=== PATIENT | female | born 1940 | race Caucasian/White ===

== ENCOUNTER 2016-12-12 02:16 | Emergency (ER) | payer MEDICARE, OTHER ==
[2016-12-12 02:43] LABS: BASOPHILS 0.3 % (0-2); EOSINOPHILS 2.2 % (0-7); HEMATOCRIT 43.2 % (36.0-48.0); HEMOGLOBIN 14.6 g/dL (12-16); IMMATURE GRANULOCYTES 0.3 % (0-5); LYMPHOCYTES 25.2 % (15-50); MCH 31.2 pg (26.0-34.0); MCHC 33.8 g/dL (31.0-37.0); MCV 92.3 fL (80.0-100.0); MONOCYTES 7.3 % (2-11); NEUTROPHILS 64.7 % (40-80); PLATELET COUNT 259 10x3/uL (130-400); RBC 4.68 10x6/uL (4.00-5.40); RDW 13.2 % (11.5-14.5); WBC 11.5 10x3/uL (4.8-10.8)
== END 2016-12-12 03:26 | disposition home or self-care (01) ==
LOC: D.ER 02:16
PROVIDERS: Emergency Medicine
DX: T81.4XXA Infection following a procedure, initial encounter (principal); B99.9 Unspecified infectious disease; E11.9 Type 2 diabetes mellitus without complications

== ENCOUNTER 2017-04-17 19:53 | Inpatient (IN) | payer MEDICARE, OTHER ==
[~2017-04-17] VITALS: Ht 177.8 cm; Wt 123.8 kg
--- NOTE | ~2017-04-17 | OP ---
PATIENT NAME: NOAH MARTINEZ MEDICAL RECORD: [id number] :42 LOCATION:D.M2 D.2110 ADMISSION DATE:04/17/17 SURGEON: ISAIAH GAMBINO MD DATE OF OPERATION: 04/18/2017 DATE OF OPERATION: 04/18/2017 PREOPERATIVE DIAGNOSES: 1. Acute appendicitis with localized peritonitis. 2. Morbid obesity. 3. Hypertension. 4. Diabetes mellitus. 5. Fibromyalgia. 6. Hypothyroidism. POSTOPERATIVE DIAGNOSES: 1. Acute appendicitis with localized peritonitis. 2. Morbid obesity. 3. Hypertension. 4. Diabetes mellitus. 5. Fibromyalgia. 6. Hypothyroidism. PROCEDURE: Laparoscopic appendectomy. SURGEON: Isaiah Gambino MD REPORT OF PROCEDURE: The patient's abdomen was prepped and draped in sterile fashion. A cutdown was made in the midline, a few centimeters above the umbilicus. Electrocautery was used to dissect through subcutaneous tissues and we encountered the fascia. The 0 Vicryls were placed in the fascia bilaterally and the fascia was incised with 15-blade. I then bluntly entered the peritoneal cavity and placed a 12-mm Beckie port. Under direct visualization, a 5 mm trocar was placed in the left lower quadrant and another was placed in the suprapubic region. The appendix was seen adherent to the anterior abdominal wall, was not purulent or gangrenous. It was diffusely swollen and inflamed. The fatty adhesions were taken down from around it. We made a window between the base of the appendix and the mesoappendix and the mesoappendix was transected with the 45 white load Endo-SARI stapler. The appendix was then transected at its base using a 45 blue load Endo-SARI stapler. There was no sign of any bleeding at this time. The appendix was then placed into an EndoCatch bag and pulled out through the midline incision. The midline incision was then closed with interrupted 0 Vicryls times 3. The wounds were then irrigated out with normal saline and infused with 10 mL of 0.25% Marcaine with epinephrine. The skin incisions were all closed with subcutaneous 5-0 Monocryl and dressed appropriately. COMPLICATIONS: None. CONDITION: Stable. ANESTHESIA: General endotracheal and local. BLOOD LOSS: Minimal. OPERATIVE REPORT [id number] NOAH MARTINEZ TRANSINT:[id number] Voice Confirmation ID: [id number] DOCUMENT ID: [id number] ISAIAH GAMBINO MD CC: [id number] DICTATION DATE: 04/18/17 1303 SHEET TURNER: 04/18/17 1330 ADM IN [place] [id number] [place] [id number]
[2017-04-17 20:32] LABS: BASOPHILS 0.2 % (0-2); EOSINOPHILS 1.2 % (0-7); HEMATOCRIT 41.7 % (36.0-48.0); HEMOGLOBIN 13.9 g/dL (12-16); IMMATURE GRANULOCYTES 0.4 % (0-5); LYMPHOCYTES 16.2 % (15-50); MCH 30.8 pg (26.0-34.0); MCHC 33.3 g/dL (31.0-37.0); MCV 92.3 fL (80.0-100.0); MEAN PLATELET VOLUME 9.8 fL (7.4-10.4); MONOCYTES 7.7 % (2-11); NEUTROPHILS 74.3 % (40-80); PLATELET COUNT 224 10x3/uL (130-400); RBC 4.52 10x6/uL (4.00-5.40); RDW 13.3 % (11.5-14.5); WBC 13.8 10x3/uL (4.8-10.8)
[2017-04-17 20:47] LABS: ALBUMIN 3.4 g/dL (3.4-5.0); ANION GAP 14.5 mmol/L (8-16); BILIRUBIN - TOTAL 0.32 mg/dL (0.2-1.3); CALCIUM 8.9 mg/dL (8.5-10.1); CARBON DIOXIDE 26.8 mmol/L (21.0-32.0); POTASSIUM - SERUM 4.3 mmol/L (3.5-5.1); PROTEIN - SERUM 6.9 g/dL (6.4-8.2)
[2017-04-17 21:40] LABS: APPEARANCE CLEAR (CLEAR); BILIRUBIN NEGATIVE (NEGATIVE); COLOR YELLOW (YELLOW); GLUCOSE NEGATIVE (NEGATIVE); KETONE NEGATIVE (NEGATIVE); NITRITE NEGATIVE (NEGATIVE); PROTEIN NEGATIVE (NEGATIVE); SPECIFIC GRAVITY 1.015 (1.005-1.020); UROBILINOGEN NORMAL (NORMAL)
[2017-04-18 01:15] VITALS: BMI 39.2
[2017-04-18] MEDS ORDERED: LANTUS SOL100 UNIT/1 SC (01:42)
[2017-04-18] MEDS ORDERED: NOVOLOG100 U/M1 SC (01:42)
[2017-04-18] MEDS ORDERED: CETIRIZINE HCL5 MG PO (01:44)
[2017-04-18] MEDS ORDERED: COZAAR25 MG PO ×2 (01:45→17:59)
[2017-04-18] MEDS ORDERED: ARMOUR THYROID30 MG PO ×2 (02:22→17:57)
[2017-04-18 05:34] LABS: APTT 24.6 SECONDS (22.8-39.4); INR 1.02 (0.85-1.17)
[2017-04-18 05:39] LABS: BASOPHILS 0.1 % (0-2); EOSINOPHILS 0.8 % (0-7); HEMATOCRIT 44.3 % (36.0-48.0); HEMOGLOBIN 14.8 g/dL (12-16); IMMATURE GRANULOCYTES 0.3 % (0-5); LYMPHOCYTES 11.7 % (15-50); MCH 30.7 pg (26.0-34.0); MCHC 33.4 g/dL (31.0-37.0); MCV 91.9 fL (80.0-100.0); NEUTROPHILS 79.1 % (40-80); PLATELET COUNT 211 10x3/uL (130-400); RBC 4.82 10x6/uL (4.00-5.40); RDW 13.3 % (11.5-14.5); WBC 14.3 10x3/uL (4.8-10.8)
[2017-04-18 05:54] LABS: ANION GAP 15.8 mmol/L (8-16); CARBON DIOXIDE 26.8 mmol/L (21.0-32.0); CREATININE - SERUM 0.9 mg/dL (0.6-1.3); POTASSIUM - SERUM 4.6 mmol/L (3.5-5.1)
[2017-04-18 06:12] VITALS: BP 148/54
[2017-04-18 08:38] VITALS: BP 148/54
[2017-04-18 12:42] VITALS: Ht 177.8 cm; Wt 123.8 kg
[2017-04-18 14:03] VITALS: BP 156/59
[2017-04-18] MEDS ORDERED: LANTUS INSULIN10 ML SC (17:56)
[2017-04-18] MEDS ORDERED: TRADJENTA5 MG PO (17:57)
[2017-04-18] MEDS ORDERED: ZYRTEC10 MG PO (17:58)
[2017-04-18 20:00] VITALS: BP 148/60; BP 177/70
[2017-04-19 04:00] VITALS: BP 144/51
[2017-04-19 08:48] VITALS: BP 135/50
[2017-04-19 11:46] VITALS: BP 139/52
[2017-04-19] MEDS ORDERED: REPREXAIN 10-21 EACH PO (13:41)
== END 2017-04-19 18:26 | disposition home or self-care (01) | DRG 340 ==
LOC: D.ER 19:53 → D.EDHOLD 23:36 → D.M2 23:36
PROVIDERS: Family Medicine; Surgery
PROC: 0DTJ4ZZ Resection of Appendix, Percutaneous Endoscopic Approach (ICD-10-PCS; principal; 2017-04-18 12:00)
DX: K35.3 Acute appendicitis with localized peritonitis (principal); E66.01 Morbid (severe) obesity due to excess calories; Z68.39 Body mass index [BMI] 39.0-39.9, adult; I10 Essential (primary) hypertension; E11.9 Type 2 diabetes mellitus without complications; E03.9 Hypothyroidism, unspecified

== ENCOUNTER 2017-11-03 02:15 | Emergency (ER) | payer MEDICARE, OTHER ==
[~2017-11-03] VITALS: Ht 177.8 cm; Wt 125.9 kg
[~2017-11-03 02:15] MED LIST: ARMOUR THYROID30 MG PO; CETIRIZINE HCL5 MG PO; COZAAR25 MG PO; LANTUS INSULIN10 ML SC; LANTUS SOL100 UNIT/1 SC; NOVOLOG100 U/M1 SC; REPREXAIN 10-21 EACH PO; TRADJENTA5 MG PO; ZYRTEC10 MG PO
[2017-11-03 02:19] VITALS: Ht 177.8 cm; Wt 125.9 kg
[2017-11-03] MEDS ORDERED: HYDROCODON-ACE1 EAC7 PO (02:35)
[2017-11-03] MEDS ORDERED: ULTRAM50 MG PO (03:08)
[2017-11-03 03:40] VITALS: BP 155/89
== END 2017-11-03 03:43 | disposition home or self-care (01) ==
LOC: D.ER 02:15
DX: S80.211A Abrasion, right knee, initial encounter (principal); W18.31XA Fall on same level due to stepping on an object, initial encounter; Y93.89 Activity, other specified; Y92.410 Unspecified street and highway as the place of occurrence of the external cause; S80.01XA Contusion of right knee, initial encounter; S93.402A Sprain of unspecified ligament of left ankle, initial encounter; E11.9 Type 2 diabetes mellitus without complications; E07.9 Disorder of thyroid, unspecified

== ENCOUNTER → 2017-11-06 16:37 | Outpatient (CLI) | payer MEDICARE, OTHER ==
[2017-11-03 02:19] VITALS: BMI 39.8
[~2017-11-06 16:37] MED LIST changes: +HYDROCODON-ACE1 EAC7 PO; +ULTRAM50 MG PO
== END | disposition home or self-care (01) ==
LOC: D.RAD 16:37
DX: S82.843A Displaced bimalleolar fracture of unspecified lower leg, initial encounter for closed fracture (principal); X58.XXXA Exposure to other specified factors, initial encounter

== ENCOUNTER 2017-12-02 00:20 | Emergency (ER) | payer MEDICARE, OTHER ==
[~2017-12-02] VITALS: Ht 177.8 cm; Wt 124.5 kg
[2017-12-02 00:29] VITALS: Ht 177.8 cm; Wt 124.5 kg
[2017-12-02 01:19] LABS: BASOPHILS 0.5 % (0-2); EOSINOPHILS 1.7 % (0-7); HEMOGLOBIN 13.9 g/dL (12-16); IMMATURE GRANULOCYTES 0.5 % (0-5); LYMPHOCYTES 27.8 % (15-50); MCH 30.9 pg (26.0-34.0); MCHC 33.9 g/dL (31.0-37.0); MCV 91.1 fL (80.0-100.0); MEAN PLATELET VOLUME 9.9 fL (7.4-10.4); MONOCYTES 8.4 % (2-11); NEUTROPHILS 61.1 % (40-80); PLATELET COUNT 232 10x3/uL (130-400); RDW 13.3 % (11.5-14.5); WBC 10.6 10x3/uL (4.8-10.8)
[2017-12-02 01:27] LABS: ALBUMIN 3.3 g/dL (3.4-5.0); ANION GAP 13.7 mmol/L (8-16); BILIRUBIN - TOTAL 0.41 mg/dL (0.2-1.3); CALCIUM 9.2 mg/dL (8.5-10.1); CREATININE - SERUM 1.1 mg/dL (0.6-1.3); PROTEIN - SERUM 7.1 g/dL (6.4-8.2)
[2017-12-02 01:29] LABS: CARBON DIOXIDE 27.3 mmol/L (21.0-32.0)
[2017-12-02 02:04] LABS: APPEARANCE CLEAR (CLEAR); COLOR YELLOW (YELLOW); GLUCOSE NEGATIVE (NEGATIVE); KETONE NEGATIVE (NEGATIVE); NITRITE NEGATIVE (NEGATIVE); PROTEIN NEGATIVE (NEGATIVE); UROBILINOGEN NORMAL (NORMAL)
[2017-12-02 02:05] LABS: BILIRUBIN NEGATIVE (NEGATIVE)
[2017-12-02 02:34] VITALS: BP 125/55
== END 2017-12-02 02:35 | disposition home or self-care (01) ==
LOC: D.ER 00:20
PROVIDERS: Family Medicine
DX: M25.552 Pain in left hip (principal); E11.9 Type 2 diabetes mellitus without complications; E07.9 Disorder of thyroid, unspecified

== ENCOUNTER → 2018-01-09 13:41 | Outpatient (CLI) | payer MEDICARE, OTHER ==
[2017-12-02 00:29] VITALS: BMI 39.3
== END | disposition home or self-care (01) ==
LOC: D.US 13:41
DX: R19.00 Intra-abdominal and pelvic swelling, mass and lump, unspecified site (principal)

== ENCOUNTER 2018-03-08 02:22 | Inpatient (IN) | payer MEDICARE, OTHER ==
[~2018-03-08] VITALS: Ht 177.8 cm; Wt 123.4 kg
[2018-03-08] VITALS (8 sets, daily range): BP systolic 114–158; BP diastolic 54–69; BMI 39.1; BMI 39.0
--- NOTE | 2018-03-08 03:00 | NUR ---
REDNESS AND SWELLING NOTED TO RIGHT FOOT. RIGHT MIDDLE TOE IS WHITE.
[2018-03-08 03:09] LABS: BASOPHILS 0.2 % (0-2); EOSINOPHILS 1.3 % (0-7); HEMOGLOBIN 14.2 g/dL (12-16); IMMATURE GRANULOCYTES 0.4 % (0-5); LYMPHOCYTES 24.2 % (15-50); MCH 30.8 pg (26.0-34.0); MCHC 33.8 g/dL (31.0-37.0); MCV 91.1 fL (80.0-100.0); MEAN PLATELET VOLUME 9.9 fL (7.4-10.4); MONOCYTES 8.1 % (2-11); NEUTROPHILS 65.8 % (40-80); RBC 4.61 10x6/uL (4.00-5.40); RDW 13.5 % (11.5-14.5); WBC 12.6 10x3/uL (4.8-10.8)
[2018-03-08 03:11] LABS: ALBUMIN 3.6 g/dL (3.4-5.0); ALKALINE PHOSPHATASE 144 U/L (46-116); ALT (SGPT) 61 U/L (10-68); BILIRUBIN - TOTAL 0.44 mg/dL (0.2-1.3); CALC OSMOLALITY 281 mosm/kg (275-300); CALCIUM 9.3 mg/dL (8.5-10.1); CARBON DIOXIDE 25.5 mmol/L (21.0-32.0); CHLORIDE - SERUM 102 mmol/L (98-107); CREATININE - SERUM 1.1 mg/dL (0.6-1.3); GLUCOSE 139 mg/dL (74-106); POTASSIUM - SERUM 4.2 mmol/L (3.5-5.1); PROTEIN - SERUM 7.8 g/dL (6.4-8.2); SODIUM 138 mmol/L (136-145); UREA NITROGEN 23 mg/dL (7-18); eGFR NON AFRICAN AMERICAN 51 mL/min (90-120)
[2018-03-08 03:13] LABS: PLATELET COUNT 296 10x3/uL (130-400)
[2018-03-08 03:20] LABS: C-REACTIVE PROTEIN 3.9 mg/dL (0.0-0.9); CREATINE KINASE 142 UL (21-215); PRO BNP 159 pg/mL (0-450)
[2018-03-08 03:24] LABS: TROPONIN-I < 0.017 ng/mL (0.000-0.060)
--- NOTE | 2018-03-08 03:39 | NUR ---
IV ABX CONITUNED TO FLOOR AT THIS TIME
--- NOTE | 2018-03-08 07:40 | NUR ---
PT RESTING IN BED EATING BREAKFAST. NO C/O PAIN. NO S/S OF ACUTE DISTRESS NOTED. CELLULITIS TO RIGHT FOOT. IV TO RIGHT FOREARM, SITE PATENT WITHOUT REDNESS OR SWELLING, SL. PT ALERT AND ORIENTED. UP AD JULISSA. ACHS. PT DENIES ANYTHING FURTHER AT THIS TIME. CALL LIGHT IN REACH. WILL CONTINUE TO MONITOR.
--- NOTE | 2018-03-08 12:30 | NUR ---
PT EATING LUNCH AT THIS TIME, DENIES NEEDS. WCTM.
[2018-03-08 15:22] LABS: ERYTHROCYTE SEDIMENTATION RATE 12 mm/hr (0-30)
--- NOTE | 2018-03-08 18:47 | NUR ---
PT RESTING IN BED, EYES OPEN. AT BEDSIDE. NO C/O PAIN. NO S/S OF ACUTE DISTRESS NOTED. PT DENIES ANYTHING FURTHER AT THIS TIME. CALL LIGHT IN REACH. WILL CONTINUE TO MONITOR.
--- NOTE | 2018-03-08 19:46 | NUR ---
RECIEVED SITTING UP ON THE SIDE OF THE BED. ALERT AND ORIENTED X4. IV TO RIGHT FA SL.. UP AD JULISSA TO B/R. DENIES ANY NEEDS AT THIS TIME. WILL CONT. POC.
[2018-03-09] VITALS: BP 121/60
[2018-03-09 03:00] VITALS: BP 157/57
[2018-03-09 07:32] LABS: BASOPHILS 0.3 % (0-2); EOSINOPHILS 1.7 % (0-7); HEMATOCRIT 37.3 % (36.0-48.0); HEMOGLOBIN 12.4 g/dL (12-16); IMMATURE GRANULOCYTES 0.3 % (0-5); LYMPHOCYTES 26.6 % (15-50); MCH 30.3 pg (26.0-34.0); MCHC 33.2 g/dL (31.0-37.0); MCV 91.2 fL (80.0-100.0); MEAN PLATELET VOLUME 9.8 fL (7.4-10.4); MONOCYTES 9.5 % (2-11); NEUTROPHILS 61.6 % (40-80); PLATELET COUNT 259 10x3/uL (130-400); RBC 4.09 10x6/uL (4.00-5.40); RDW 13.5 % (11.5-14.5)
[2018-03-09 07:39] LABS: WBC 7.7 10x3/uL (4.8-10.8)
[2018-03-09 07:52] LABS: ANION GAP 14.1 mmol/L (8-16); CALCIUM 8.5 mg/dL (8.5-10.1); CARBON DIOXIDE 25.9 mmol/L (21.0-32.0)
[2018-03-09 09:37] VITALS: BP 178/73
--- NOTE | 2018-03-09 12:20 | NUR ---
RN ROUNDS. CO SIGN WITH ASSINGED NURSE. PATIENT OOB TO RESTROOM. RESP EVEN AND UNLABORED. PATIENTS AT BEDSIDE. NO DISTRESS.
[2018-03-09 13:00] VITALS: BP 142/66
[2018-03-09 15:12] VITALS: BP 151/52
[2018-03-09 19:00] VITALS: BP 156/78
--- NOTE | 2018-03-09 22:12 | NUR ---
PATIENT RESTING IN BED WITH NO S/S OF DISTRESS. ADMINISTERED MEDS PER ORDERS. PATIENT DENIES OTHER NEEDS AT THIS TIME. BED IN LOWEST POSITION AND CALL LIGHT WITHIN REACH. ENCOURAGED THE PATIENT TO CALL IF HE HAS NEEDS.
[2018-03-10] VITALS: BP 160/63
[2018-03-10 03:00] VITALS: BP 158/61
[2018-03-10 08:00] VITALS: BP 166/61
--- NOTE | 2018-03-10 08:20 | NUR ---
PT AOX4 RESP EVEN AND NONLABORED IV TO RIGHT FOREARM PATENT AND INTACT AT THIS TIME SRX2 BED AT LOWEST SETTING CALL LIGHT WITHIN REACH WILL CONTINUE TO MONITOR
[2018-03-10 10:11] LABS: BASOPHILS 0.2 % (0-2); EOSINOPHILS 2.1 % (0-7); HEMOGLOBIN 12.7 g/dL (12-16); IMMATURE GRANULOCYTES 0.2 % (0-5); LYMPHOCYTES 24.8 % (15-50); MCH 30.2 pg (26.0-34.0); MCHC 33.4 g/dL (31.0-37.0); MCV 90.3 fL (80.0-100.0); MEAN PLATELET VOLUME 9.8 fL (7.4-10.4); MONOCYTES 7.5 % (2-11); NEUTROPHILS 65.2 % (40-80); PLATELET COUNT 253 10x3/uL (130-400); RBC 4.21 10x6/uL (4.00-5.40); RDW 13.3 % (11.5-14.5); WBC 8.2 10x3/uL (4.8-10.8)
[2018-03-10 10:36] LABS: ANION GAP 11.8 mmol/L (8-16); CALCIUM 9.1 mg/dL (8.5-10.1); CARBON DIOXIDE 26.5 mmol/L (21.0-32.0); POTASSIUM - SERUM 4.3 mmol/L (3.5-5.1)
--- NOTE | 2018-03-10 11:38 | NUR ---
X3 DAYS OF VANCOMYCIN THERAPY COMPLETE PLEASE REORDER IF EXTENDED DURATION IS NEEDED THANK YOU FOR THE CONSULT!
[2018-03-10 12:00] VITALS: BP 108/48
[2018-03-10 16:00] VITALS: BP 138/53
[2018-03-10 19:08] LABS: APPEARANCE CLEAR (CLEAR); BILIRUBIN NEGATIVE (NEGATIVE); COLOR YELLOW (YELLOW); GLUCOSE NEGATIVE (NEGATIVE); KETONE NEGATIVE (NEGATIVE); NITRITE NEGATIVE (NEGATIVE); PROTEIN NEGATIVE (NEGATIVE); UROBILINOGEN NORMAL (NORMAL)
[2018-03-10 20:00] VITALS: BP 144/56
--- NOTE | 2018-03-10 21:49 | NUR ---
SPOKE WITH DR. VIZCAINO IN REGARDS TO COMING BACK AND SPEAKING TO THE PATIENT AND FAMILY AGAIN PER THEIR REQUEST. DR. VIZCAINO STATED IT WILL BE A LITTLE BIT BUT HE WILL COME BACK.
[2018-03-11] VITALS: BP 160/55
--- NOTE | 2018-03-11 01:01 | NUR ---
PATIENT RESTING IN BED WITH NO S/S OF DISTRESS. GUEST AT BEDSIDE. PATIENT UP TO RESTROOM AND IS STABLE ON HER FEET. ADMINISTERED MEDS PER ORDERS. PATIENT DENIES OTHER NEEDS AT THIS TIME. BED IN LOWEST POSITION AND CALL LIGHT WITHIN REACH. ENCOURAGED THE PATIENT TO CALL IF SHE HAS NEEDS. ALSO REMINDED THE PATIENT THAT SHE CANNOT HAVE ANYTHING TO EAT OR DRINK AFTER MIDNIGHT.
[2018-03-11 04:00] VITALS: BP 152/49
[2018-03-11 06:37] LABS: BASOPHILS 0.2 % (0-2); EOSINOPHILS 1.7 % (0-7); HEMOGLOBIN 13.6 g/dL (12-16); IMMATURE GRANULOCYTES 0.5 % (0-5); LYMPHOCYTES 20.9 % (15-50); MCH 30.8 pg (26.0-34.0); MCV 90.5 fL (80.0-100.0); MEAN PLATELET VOLUME 9.9 fL (7.4-10.4); MONOCYTES 9.2 % (2-11); NEUTROPHILS 67.5 % (40-80); PLATELET COUNT 262 10x3/uL (130-400); RBC 4.42 10x6/uL (4.00-5.40); RDW 13.3 % (11.5-14.5); WBC 10.1 10x3/uL (4.8-10.8)
[2018-03-11 07:01] LABS: ANION GAP 12.2 mmol/L (8-16); CALCIUM 9.1 mg/dL (8.5-10.1); CARBON DIOXIDE 28.1 mmol/L (21.0-32.0); POTASSIUM - SERUM 4.3 mmol/L (3.5-5.1)
[2018-03-11 07:55] VITALS: BP 150/60
--- NOTE | 2018-03-11 08:06 | NUR ---
PT LYING IN BED STATED SHE IS CONCERNED IN REGARDS TO A SEPULVEDA BEING PLACED WHILE SHE IS IN PROCEDURE, PT STATED SHE HAD ONE PLACED DURING HER LAST SURGERY THAT CAUSED IRRITATION AND INFECTION, ADVISED PT TO RELAY CONCERNS TO ANESTHESIA WHEN THEY COME BY, PT ALSO STATED THAT SHE HAS A HARD TIME WAKING UP FROM SEDATION, TOLD PT THIS IS IMPORTANT TO TELL THE ANESTHESIA TEAM THIS. ADMINISTERED MORNING MEDS TO PT, NO OTHER NEEDS VOICED CONTINUE WITH PLAN OF CARE
[2018-03-11 11:54] VITALS: BP 123/51
--- NOTE | 2018-03-11 13:29 | EC ---
PATIENT:NOAH MARTINEZ DATE OF SERVICE: 03/08/18 SEX: F MEDICAL RECORD: [id number] DATE OF : 42 LOCATION:D. D.120 AGE OF PATIENT: 77 ADMISSION DATE: 03/08/18 REFERRING PHYSICIAN: INTERPRETING PHYSICIAN: LÁZARO MEADOWS MD ECHOCARDIOGRAM REPORT ECHO CHARGES 4 ECHO COMPLETE Date: 03/11/18 CLINICAL DIAGNOSIS: ASSESS LV FUNCTION ECHOCARDIOGRAPHIC MEASUREMENTS (adult normal given) AC root (d.<3.7cm) 3.5 cm LV Septum d (<1.2 cm> 1.1 cm Valve Excursion 1.5 cm LV Septum (systole) 1.5 cm Left Atria (s.<4.0cm> 3.2 cm LVPW d(<1.2cm) 0.7 cm RV (d.<2.3cm) 2.3 cm LVPW (sytole) 0.9 cm LV diastole(<5.6CM) 4.6 cm MV E-F(>70mm/sec) cm LV systole 3.8 cm LVOT Diameter 1.9 cm MV exc.(>10mm) cm Est.ejection fraction (50-75%) % DOPPLER: LVIT cm/sec A 112 cm/sec E 83.0 cm/sec LA cm/sec RVSP 26 mmHg LVOT 89 cm/sec AOP1/2T m/s Asc. Ao 138 cm/sec RVOT 92 cm/sec RA cm/sec PA 108 cm/sec AV Gradient Peak 7.6 mmHg AV Mean 4.0 mmHg AV Area 2.0 cm MV Gradient Peak 5.6 mmHg MV Mean 3.2 mmHg MV Area cm COMMENTS: Customer Relations Representative: Javire EPSTEIN Laundry Aide: 2 Dr. Jay TAPE# PACS Pericardial Effusion N DATE OF SERVICE: 03/10/2018 PROCEDURE: Echocardiogram. FINDINGS: 1. Left ventricular chamber size is within normal limits. Left ventricular systolic function is normal. Overall ejection fraction estimated at 60%. 2. Left atrium, right atrium, and right ventricle chamber sizes are within normal limits. 3. Valvular structures have normal structure and motion. ECHOCARDIOGRAM REPORT [id number] NOAH MARTINEZ 4. Doppler interrogation reveals mild tricuspid regurgitation, no other valvular insufficiency or stenosis. Pulmonary systolic pressure estimated at 26 mmHg. 5. No evidence of pericardial effusion or left ventricular thrombus. TRANSINT:[id number] Voice Confirmation ID: [id number] DOCUMENT ID: [id number] LÁZARO MEADOWS MD at 1329 CC: [id number] DICTATION DATE: 03/11/18 1220 PROCESS SAFETY SPECIALIST: 03/11/18 1252 ADM IN [facility] [address] [place] [address]
--- NOTE | 2018-03-11 14:03 | NUR ---
RN ROUNDING DONE WITH PATIENT RESTING WITH EYES CLOSED. RIGHT WRIST PIV SEEN WITH SALINE LOCK. PATIENT IS ON ROOM AIR. RESP ARE EVEN AND NON LABORED. NPO STATUS FOR SURFERY TODAY.
[2018-03-11 15:40] VITALS: BP 142/57
--- NOTE | 2018-03-11 17:51 | NUR ---
PT NEEDED TO HAVE EKG COMPLETED FOR SURGERY, PER ORDERS EKG ORDERED AND ACTIVE, CALLED RESPIRATORY SPOKE WITH BERTIN AND ADVISED SHE WAS GETTING O2 TANKS AND TO CALL [facility] OR [facility], CALLED [facility] AND ADVISED OF NEED. STATED HE WILL LOOK INTO IT
--- NOTE | 2018-03-11 18:44 | NUR ---
PT AND SPOUSE INQUIRED ON SURGERY HOLD UP, CALLED SURGERY AND NO ANSWER, DAJA CADE CALLED DIRECTOR BUSINESS TRAVEL AND WAS ADVISED DR CALDERON IS STILL IN SURGERY, SPOKE TO PT AND SPOUSE AND ADVISED OF SURGERY STILL GOING ON PT IS HUNGRY. CONTINUE WITH PLAN OF CARE
--- NOTE | 2018-03-11 19:09 | NUR ---
SPOKE WITH CHEVY, RT TO LET HER KNOW WE NEED AN EKG SOON POSSIBLE ON PATIENT. SHE STATED THAT SHE WILL LET THE RT KNOW.
[2018-03-11 19:44] VITALS: BP 135/51
--- NOTE | 2018-03-11 19:56 | NUR ---
PATIENT BEING TAKEN FOR SURGERY
--- NOTE | 2018-03-11 21:50 | NUR ---
REC'D PATIENT BACK FROM RECOVERY. NO S/S OF DISTRESS. WILL CONTINUE TO MONITOR.
--- NOTE | 2018-03-11 22:23 | NUR ---
PATIENT C/O PAIN AND REQUESTING THE DOCTOR BE CALLED FOR ANOTHER PAIN MEDICATAION. I ATTEMPTED TO CALL DR. MCCORD, SECURITY SHIFT SUPERVISOR FOR DR. CALDERON, AND IT WENT TO . WILL TRY AGAIN
--- NOTE | 2018-03-11 22:39 | NUR ---
SPOKE WITH DR. MCCORD IN REGARDS TO PATIENT'S PAIN. DR. MCCORD STATED THE PATIENT CAN HAVE NORCO/PERCOCET-10 SHE CAN HAVE MORPHINE Q4HP. THE PATIENT REFUSED THE NORCO AND PERCOCET STATING THAT THE ACETAMINOPHEN UPSETS HER STOMACH. ORDERED MORPHINE.
[2018-03-12] VITALS (7 sets, daily range): BP systolic 121–175; BP diastolic 41–68
[2018-03-12 05:43] LABS: BASOPHILS 0.3 % (0-2); EOSINOPHILS 2.1 % (0-7); HEMATOCRIT 39.3 % (36.0-48.0); HEMOGLOBIN 13.2 g/dL (12-16); IMMATURE GRANULOCYTES 0.4 % (0-5); LYMPHOCYTES 28.2 % (15-50); MCH 30.6 pg (26.0-34.0); MCHC 33.6 g/dL (31.0-37.0); MEAN PLATELET VOLUME 9.8 fL (7.4-10.4); MONOCYTES 9.4 % (2-11); NEUTROPHILS 59.6 % (40-80); PLATELET COUNT 254 10x3/uL (130-400); RBC 4.32 10x6/uL (4.00-5.40); RDW 13.5 % (11.5-14.5)
[2018-03-12 06:04] LABS: ANION GAP 13.3 mmol/L (8-16); CALCIUM 8.7 mg/dL (8.5-10.1); CARBON DIOXIDE 27.5 mmol/L (21.0-32.0); POTASSIUM - SERUM 3.8 mmol/L (3.5-5.1)
--- NOTE | 2018-03-12 07:49 | OP ---
PATIENT NAME: NOAH MARTINEZ MEDICAL RECORD: [id number] :42 LOCATION:D.M3 D.1206 ADMISSION DATE:03/08/18 SURGEON: TUCKER CALDERON DO DATE OF OPERATION: 03/11/2018 PROCEDURE PERFORMED: Right third toe amputation. 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 INDICATIONS: Ms. Martinez is a 77-year-old female who is diabetic and had a cellulitis of her right foot and a large bulla on her right third toe. It was draining. She was admitted to the hospital and started on IV antibiotics. An MRI was done, which demonstrated cellulitis in the foot and also osteomyelitis of the right third toe in the distal phalanx. I informed her that we could get a bone biopsy and direct treatment, but she did get a chance to the osteo to come back in that toe, so we could amputate the toe and it should be done with it and she would be able to walk on her foot. She would just be missing the third toe. This would eliminate the osteo in her foot though at least in that toe. It was ultimately decided she wanted the amputation rather than a bone biopsy and treatment and to do nothing and in line with her desires that is what we did. She is aware of the risks and benefits including infection, bleeding, damage to vessels, need for further surgery, she signed the consent. SURGEON: Tucker Calderon DO ASSISTED BY: Fransico Yin. DESCRIPTION OF THE PROCEDURE: The patient was taken to the operative suite, laid in supine position. She was on IV vancomycin during her stay here, so no preoperative antibiotics were given. The tourniquet was placed under the drapes, she was prepped and draped in sterile fashion. After timeout was performed, the incision was drawn out and around the third toe at the base of the MTP joint. This was incised around the toe with a 15 blade scalpel and then the toe was removed. The extensor and flexor tendons were cut as well and then the third metatarsal head cartilage was removed and the tourniquet was let down. The site was thoroughly irrigated. Any bleeders were coagulated with the Bovie at the time and the skin was closed with 2-0 Prolene in a horizontal mattress type stitch and a few simple stitches. The site was then anesthetized with 10 mL of lidocaine 1% and then a dressing was applied of Adaptic, 4 x 4s, Kerlix and Jose Miguel wrap. The patient was placed into a postop shoe and the second postop shoe was placed on her left foot and as she requested prior to the surgery, so she would not walk off balance. The tourniquet was let down to 3 minutes and had been inflated prior to the incision. Blood loss approximately 10 mL. COMPLICATIONS: None. OPERATIVE REPORT [id number] NOAH MARTINEZ TRANSINT:[id number] Voice Confirmation ID: [id number] DOCUMENT ID: [id number] TUCKER CALDERON DO at 0749 CC: [id number] DICTATION DATE: 03/11/182122 HEALTH UNDERWRITER: 03/11/182232 ADM IN [facility] [address] [place] [address]
--- NOTE | 2018-03-12 08:39 | NUR ---
AM MEDS GIVEN AT THIS TIME. ALSO GAVE 4MG OF MORPHINE FOR PAIN LEVEL OF 8/10. PT DENIES ANY NEEDS AT THIS TIME. CALL LIGHT IN REACH, FAMILY AT BEDSIDE, NAD NOTED, WILL CONTINUE TO MONITOR.
--- NOTE | 2018-03-12 12:14 | MORECARE ---
CASE MANAGEMENT DISCHARGE SUMMARY PATIENT: NOAH MARTINEZ UNIT: [id number] ADM DATE: 03/08/18 AGE: 77 : 41 SEX: F ROOM/BED: D.1206 AUTHOR: LEONARD BRYAN PHYSICIAN: REFERRING PHYSICIAN: KRYSTLE VELÁZQUEZ MD DATE OF SERVICE: 03/12/18 Discharge Plan Patient Name: NOAH MARTINEZ Facility: [facility]:[place] : 1940 Planned Disposition: Anticipated Discharge Date: Discharge Date: Expected LOS: Initial Reviewer: [email or web address] Initial Review Date: 03/12/2018 Generated: 03/12/18 1:14 pm Comments DCP- Discharge Planning Updated by [id number]: Ira Lassiter on 03/12/18 11:[address] Patient Name: NOAH MARTINEZ Admission Status: ER Accout number: [id number] Admission Date: 03-08-2018 : 1940 Admission Diagnosis:OTHER ACUTE OSTEOMYELITIS, RIGHT ANKLE AND FOOT Attending: KRYSTLE VELÁZQUEZ Current LOS: 4 Anticipated DC Date: Planned Disposition: Primary Insurance: MEDICARE A & B Discharge Planning Comments: CM MET WITH PATIENT ABOUT DC PLANNING/NEEDS. SHE STATES SHE PLANS TO DC TO HOME. STATES WANTS A WHEEL CHAIR IF SHE QUALIFIES FOR ONE. USES WALKER AT HOME. [facility] FOR HH LEFT WITH PATIENT PER HER REQUEST, SHE IS TRYING TO FIND OUT WHICH HH IS CLOSE TO HER. IM SIGNED. LIVES AT HOME WITH . CM WILL FOLLOW AND ASSIST NEEDED WITH DC PLANNING/NEEDS. Limited Radiology Technician: Ira Lassiter Coverage Notice Reviewer: [id number] - Ira Lassiter Notice Issued Date-Time: 03/12/2018 12:07 Notice Type: IM Discharge Notice Notice Delivered To: Patient Relationship to Patient: Self Side Stapler Name: Delivery Method: HAND - Hand Delivered Kaur Days: Prior Verbal Notification: Recipient Understood Notice: Yes Recipient Signature: Yes Med Rec Note Co-signed by Attending: Coverage Notice Comment: Patient Name: NOAH MARTINEZ Page [phone] at 1214 All edits/amendments must be made on the electronic document DICTATION DATE: 03/12/18 1213 MAT TESTER: MARVIN 03/12/18 1213 RPT#: [id number] DC DATE: STATUS: ADM IN [facility] [address] [place] [address] END OF REPORT
--- NOTE | 2018-03-12 12:21 | MORECARE ---
CASE MANAGEMENT DISCHARGE SUMMARY PATIENT: NOAH MARTINEZ UNIT: [id number] ADM DATE: 03/08/18 AGE: 77 : 41 SEX: F ROOM/BED: D.1206 AUTHOR: LEONARD BRYAN PHYSICIAN: REFERRING PHYSICIAN: KRYSTLE VELÁZQUEZ MD DATE OF SERVICE: 03/12/18 Discharge Plan Patient Name: NOAH MARTINEZ Facility: [facility]:[place] : 1940 Planned Disposition: Anticipated Discharge Date: Discharge Date: Expected LOS: Initial Reviewer: [email or web address] Initial Review Date: 03/12/2018 Generated: 03/12/18 1:21 pm Comments DCP- Discharge Planning Updated by [email or web address]: Ira Lassiter on 03/12/18 11:[address] Patient Name: NOAH MARTINEZ Admission Status: ER Accout number: [id number] Admission Date: 03-08-2018 : 1940 Admission Diagnosis:OTHER ACUTE OSTEOMYELITIS, RIGHT ANKLE AND FOOT Attending: KRYSTLE VELÁZQUEZ Current LOS: 4 Anticipated DC Date: Planned Disposition: Primary Insurance: MEDICARE A & B Discharge Planning Comments: CM MET WITH PATIENT ABOUT DC PLANNING/NEEDS. SHE STATES SHE PLANS TO DC TO HOME. STATES WANTS A WHEEL CHAIR IF SHE QUALIFIES FOR ONE. USES WALKER AT HOME. [facility] FOR HH LEFT WITH PATIENT PER HER REQUEST, SHE IS TRYING TO FIND OUT WHICH HH IS CLOSE TO HER. IM SIGNED. LIVES AT HOME WITH . CM WILL FOLLOW AND ASSIST NEEDED WITH DC PLANNING/NEEDS. Insurance Claim Approver: Ira Lassiter DCPIA - Discharge Planning Initial Assessment Updated by [id number]: Ira Lassiter on 03/12/18 12:15 pm * Is the patient Alert and Oriented? Yes * PCP SOILA * Pharmacy [facility] [place] * Preadmission Environment Home with Family * ADLs Independent * Equipment Walker * List name and contact numbers for known caregivers / representatives who currently or will assist patient after discharge: THERESA, * Community resources currently utilized None * Can the patient safely return to the preadmission environment? Yes * Has this patient been hospitalized within the prior 30 days at any hospital? No Coverage Notice Reviewer: [id number] - Ira Lassiter Notice Issued Date-Time: 03/12/2018 12:07 Notice Type: IM Discharge Notice Notice Delivered To: Patient Relationship to Patient: Self Power Sewing Machine Operator Name: Delivery Method: HAND - Hand Delivered Kaur Days: Prior Verbal Notification: Recipient Understood Notice: Yes Recipient Signature: Yes Med Rec Note Co-signed by Attending: Coverage Notice Comment: Last DP export: 03/12/18 11:14 a Patient Name: NOAH MARTINEZ Page [phone] at 1221 All edits/amendments must be made on the electronic document DICTATION DATE: 03/12/18 1220 DIE CUTTER DIAMOND: MARVIN 03/12/18 1220 RPT#: [id number] DC DATE: STATUS: ADM IN [facility] [address] [place] [address] END OF REPORT
--- NOTE | 2018-03-12 15:03 | NUR ---
Rehab Note- Acute Inpatient Rehab prescreen order received. The patient's is not interested in inpatient acute rehab stay at time. Spoke with SCOT Roth. Thank you for this referral! Cathryn Lyon RN Clinical Liaison, [facility] Rehab
--- NOTE | 2018-03-12 15:12 | MORECARE ---
CASE MANAGEMENT DISCHARGE SUMMARY PATIENT: NOAH MARTINEZ UNIT: [id number] ADM DATE: 03/08/18 AGE: 77 : 41 SEX: F ROOM/BED: D.1206 AUTHOR: IRVINDOC PHYSICIAN: REFERRING PHYSICIAN: KRYSTLE VELÁZQUEZ MD DATE OF SERVICE: 03/12/18 Discharge Plan Patient Name: NOAH MARTINEZ Facility: [facility]:[place] : 1940 Planned Disposition: Anticipated Discharge Date: Discharge Date: Expected LOS: Initial Reviewer: [email or web address] Initial Review Date: 03/12/2018 Generated: 03/12/18 4:12 pm Comments DCP- Discharge Planning Updated by [id number]: Ira Lassiter on 03/12/18 2:[address] Patient Name: NOAH MARTINEZ Admission Status: ER Accout number: [id number] Admission Date: 03-08-2018 : 1940 Admission Diagnosis:OTHER ACUTE OSTEOMYELITIS, RIGHT ANKLE AND FOOT Attending: KRYSTLE VELÁZQUEZ Current LOS: 4 Anticipated DC Date: Planned Disposition: Primary Insurance: MEDICARE A & B Discharge Planning Comments: CM MET WITH PATIENT ABOUT DC PLANNING/NEEDS. SHE STATES SHE PLANS TO DC TO HOME. STATES WANTS A WHEEL CHAIR IF SHE QUALIFIES FOR ONE. USES WALKER AT HOME. [facility] FOR HH LEFT WITH PATIENT PER HER REQUEST, SHE IS TRYING TO FIND OUT WHICH HH IS CLOSE TO HER. IM SIGNED. LIVES AT HOME WITH . CM WILL FOLLOW AND ASSIST NEEDED WITH DC PLANNING/NEEDS. Welfare Eligibility Worker: Ira Lassiter Appended by Ira Lassiter on 03/12/2018 15:06 SCREW MACHINE SET UP OPERATOR: CM WAS CONTACTED BY PATIENT'S THERESA, HE STATES THEY ARE NOT INTERESTED IN IN PATIENT REHAB. STATES WANTS TO TALK TO THE DOCTOR IF THEY THINK SHE NEEDS HOME HEALTH BUT STATES HE DOESN'T SEE WHERE SHE HAS A NEED FOR EITHER ONE. DARREN WITH INPT REHAB NOTIFIED OF HUSBANDS DENIAL FOR INPT REHAB. CM WILL FOLLOW AND ASSIST NEEDED. DCPIA - Discharge Planning Initial Assessment Updated by [id number]: Ira Lassiter on 03/12/18 12:15 pm * Is the patient Alert and Oriented? Yes * PCP CANNADAY * Pharmacy [facility] [place] * Preadmission Environment Home with Family * ADLs Independent * Equipment Walker * List name and contact numbers for known caregivers / representatives who currently or will assist patient after discharge: THERESA, * Community resources currently utilized None * Can the patient safely return to the preadmission environment? Yes * Has this patient been hospitalized within the prior 30 days at any hospital? No Coverage Notice Reviewer: [email or web address] Shabana Lassiter Notice Issued Date-Time: 03/12/2018 12:07 Notice Type: IM Discharge Notice Notice Delivered To: Patient Relationship to Patient: Self Tub Chucker Name: Delivery Method: HAND - Hand Delivered Kaur Days: Prior Verbal Notification: Recipient Understood Notice: Yes Recipient Signature: Yes Med Rec Note Co-signed by Attending: Coverage Notice Comment: Last DP export: 03/12/18 11:21 a Patient Name: NOAH MARTINEZ Page [phone] at 1512 All edits/amendments must be made on the electronic document DICTATION DATE: 03/12/181511 SUPERVISOR LUMP ROOM: MARVIN 03/12/18 151 RPT#: [id number] DC DATE: STATUS: ADM IN [facility] [address] [place] [address] END OF REPORT
--- NOTE | 2018-03-12 19:20 | NUR ---
PT RESTING IN BED. NAME AND DATE PLACED ON BOARD. RE TAPED PT RIGHT WRIST IV. PT HAS NO S/S OF DISTRESS. BEDLOW AND CALL LIGHT IN REACH. BOOT ON RIGHT FOOT. PT WILL CALL FOR ASSIST WHEN NEEDED. WILL CPOC
--- NOTE | 2018-03-12 22:31 | NUR ---
PT UP TO BATHROOM AND BACK TO BED. FSBS IS 199, PT WANTS BOTH LANTUS AND REGULAR INSULIN. PT DENIES ANY OTHER NEEDS. NO S/S OF DISTERSS. WILL CPOC
--- NOTE | 2018-03-13 00:17 | NUR ---
PT UP USING THE RESTROOM. PT COMPLAINS OF 7/10 IN RIGHT FOOT. SHARP PAINS COMING FROM BOTTOM AND ALL THROUGHOUT FOOT. MORPHINE GIVEN ORDERED. PT BACK IN BED RESTING DENIES ANY OTHER NEEDS. WILL CPOC
--- NOTE | 2018-03-13 03:00 | NUR ---
SPOKE TO PT REGARDING AFRO LOWER EXT ARTERIOGRAM ORDERED. PT BECAME ANXIOUS AND UPSET. STATED THAT DR VIZCAINO STATED IT WOULD BE A SCAN AND SHE WAS NOT AWARE OF ANY INCISIONS THAT WOULD BE MADE. EDUCATED PT AND ABOUT PROCEDURE. PT STATED SHE ISNT GOING TO GET ANY PROCEDURE LIKE A ARTERIOGRAM AT THIS TIME BECAUSE SHE WANTS TIME TO HEAL AND GO HOME. PT SITTING IN BED NO S/S OF DISTRESS. WILL CPOC
[2018-03-13 05:43] VITALS: BP 140/54
[2018-03-13 06:30] LABS: BASOPHILS 0.4 % (0-2); EOSINOPHILS 2.2 % (0-7); HEMATOCRIT 38.9 % (36.0-48.0); HEMOGLOBIN 13.2 g/dL (12-16); IMMATURE GRANULOCYTES 0.5 % (0-5); LYMPHOCYTES 23.7 % (15-50); MCH 30.9 pg (26.0-34.0); MCHC 33.9 g/dL (31.0-37.0); MEAN PLATELET VOLUME 9.8 fL (7.4-10.4); MONOCYTES 9.7 % (2-11); NEUTROPHILS 63.5 % (40-80); PLATELET COUNT 247 10x3/uL (130-400); RBC 4.27 10x6/uL (4.00-5.40); RDW 13.6 % (11.5-14.5); WBC 10.8 10x3/uL (4.8-10.8)
[2018-03-13 06:31] LABS: MCV 91.2 fL (80.0-100.0)
[2018-03-13 07:12] LABS: ANION GAP 14.9 mmol/L (8-16); CALCIUM 8.8 mg/dL (8.5-10.1); CARBON DIOXIDE 26.4 mmol/L (21.0-32.0); POTASSIUM - SERUM 4.3 mmol/L (3.5-5.1)
--- NOTE | 2018-03-13 08:04 | NUR ---
PT SPOUSE AT NURSES STATION IRRATE THAT PT WAS TOLD AT 3AM OF PROCEDURE TO BE DONE, HE STATED HE WANTS HER TO REST AND THIS CAN BE DONE OUT PT. CALLED ANASTACIO TO HAVE HER COME AND SPEAK TO PT SPOUSE
[2018-03-13 09:46] VITALS: BP 143/51
[2018-03-13 12:22] VITALS: BP 131/49
[2018-03-13 13:09] VITALS: Ht 177.8 cm; Wt 123.4 kg
--- NOTE | 2018-03-13 16:35 | NUR ---
PT FSBS 196. REPORTED TO NURSE BRIGETTE JO.
[2018-03-13 17:27] VITALS: BP 149/50
--- NOTE | 2018-03-13 19:38 | NUR ---
BEDSIDE REPORT RECEIVED. PT RESTING IN BED, AAO X4, RIGHT FOREARM IV 22G AND LEFT FOREARM 20G BOTH S/L. PT HAS A BOOT ON RIGHT FOOT WITH DRSG CDI. PT DENIES ANY NEEDS AT THIS TIME. STATES SHE HAD A HARD BM TODAY. PT DENIES ANY NEEDS. NO S/S OF DISTRESS. BEDLOW AND CALL LIGHT IN REACH. NAME AND DATE PLACED ON BOARD. WILL CPOC
[2018-03-13 20:40] VITALS: BP 144/48
--- NOTE | 2018-03-13 22:27 | NUR ---
PT FSBS IS 147, NO REG INSULIN NEEDED. PT LANTUS GIVEN ORDERED. PT DECLINED A SNACK. PT ASSISTED WITH REPOSITIONING IN BED. PT BEDLOW AND CALL LIGHT IN REACH. PT DENIES ANY NEEDS. NO S/S OF DISTRESS. WILL CPOC
--- NOTE | 2018-03-14 00:36 | NUR ---
PT CALLED COMPLAINING OF RIGHT FOOT PAIN 11/04. MORPHINE GIVEN ORDERED. PT DENIES ANY OTHER NEEDS. NO S/S OF DISTRESS. WILL CPOC
--- NOTE | 2018-03-14 03:39 | NUR ---
PT ASLEEP. RESP EVEN AND UNLABORED. NO S/S OF DISTRESS. PT WILL CALL FOR ASSIST WHEN NEEDED. BEDLOW AND CALL LIGHT IN REACH . WILL CPOC
--- NOTE | 2018-03-14 04:20 | NUR ---
PT CALLED WORRIED HER BLOOD SUGAR IS LOW. CHECKED FSBS, 117 PT DENIES ANY OTHER NEEDS. ASSISSTED PT TO RESTROOM. BEDLOW AND CALL LIGHT IN REACH. WILL CPOC
[2018-03-14 04:21] VITALS: BP 140/47
--- NOTE | 2018-03-14 04:50 | NUR ---
BOOT ON RIGHT FOOT REMOVED AND ELEVATED HEELS OFF OF BED. PT FEELING SORE ON HEEL. NO OPEN AREA JUST A BLANCHABLE RED SPOT. PT DENIES ANY OTHER NEEDS. WILL CPCO
[2018-03-14 08:00] VITALS: BP 142/44
[2018-03-14] MEDS ORDERED: BACTRIM DS1 TAB PO (11:13)
[2018-03-14 11:53] VITALS: BP 157/46
--- NOTE | 2018-03-14 13:19 | MORECARE ---
CASE MANAGEMENT DISCHARGE SUMMARY PATIENT: NOAH MARTINEZ UNIT: [id number] ADM DATE: 03/08/18 AGE: 77 : 41 SEX: F ROOM/BED: D.1206 AUTHOR: LEONARD BRYAN PHYSICIAN: REFERRING PHYSICIAN: KRYSTLE VELÁZQUEZ MD DATE OF SERVICE: 03/14/18 Discharge Plan Patient Name: NOAH MARTINEZ Facility: [facility]:[place] : 1940 Planned Disposition: Anticipated Discharge Date: Discharge Date: Expected LOS: Initial Reviewer: [id number] Initial Review Date: 03/12/2018 Generated: 03/14/18 2:19 pm Comments DCP- Discharge Planning Updated by [id number]: Angie Subramanian on 03/14/18 12:[address] Patient Name: NOAH MARTINEZ Encounter No: [id number] : 1940 Primary Insurance: MEDICARE A & B Anticipated DC Date: Planned Disposition: External Planned Provider: : DCP follow-up note: Patient and family in agreement with discharge plan. No changes to plan. Patient will discharge to her home with her spouse. CM called Dr. Cabrera and verified that patient did not need home health at this time. Patient to leave dressing in place until she see's Dr. Cabrera in 1 week. Patient did not qualify for a wheelchair per her Physical Therapy notes. Patient wanted to to see if her insurance would pay for a shower chair. CM called [facility] to check benefits. CM informed patient that her insurance would not pay for a shower chair, but [facility] has shower chair for < $40.00. Patient spouse stated "It's not that big of a deal. We will pick one up if we need it. " Case management will continue to follow and assist as needed. Angie Subramanian DCP- Discharge Planning Updated by [id number]: Ira Lassiter on 03/12/18 2:[address] Patient Name: NOAH MARTINEZ Admission Status: ER Accout number: [id number] Admission Date: 03-08-2018 : 1940 Admission Diagnosis:OTHER ACUTE OSTEOMYELITIS, RIGHT ANKLE AND FOOT Attending: EMLANIA, KRYSTLE Current LOS: 4 Anticipated DC Date: Planned Disposition: Primary Insurance: MEDICARE A & B Discharge Planning Comments: CM MET WITH PATIENT ABOUT DC PLANNING/NEEDS. SHE STATES SHE PLANS TO DC TO HOME. STATES WANTS A WHEEL CHAIR IF SHE QUALIFIES FOR ONE. USES WALKER AT HOME. [facility] FOR HH LEFT WITH PATIENT PER HER REQUEST, SHE IS TRYING TO FIND OUT WHICH HH IS CLOSE TO HER. IM SIGNED. LIVES AT HOME WITH . CM WILL FOLLOW AND ASSIST NEEDED WITH DC PLANNING/NEEDS. Creative Lead: Ira Lassiter Appended by Ira Lassiter on 03/12/2018 15:06 OFFICE MAIL CLERK: CM WAS CONTACTED BY PATIENT'S THERESA, HE STATES THEY ARE NOT INTERESTED IN IN PATIENT REHAB. STATES WANTS TO TALK TO THE DOCTOR IF THEY THINK SHE NEEDS HOME HEALTH BUT STATES HE DOESN'T SEE WHERE SHE HAS A NEED FOR EITHER ONE. DARREN WITH [facility] NOTIFIED OF HUSBANDS DENIAL FOR INPT REHAB. CM WILL FOLLOW AND ASSIST NEEDED. DCPIA - Discharge Planning Initial Assessment Updated by [email or web address]: Ira Lassiter on 03/12/18 12:15 pm * Is the patient Alert and Oriented? Yes * PCP SOILA * Pharmacy [facility] [place] * Preadmission Environment Home with Family * ADLs Independent * Equipment Walker * List name and contact numbers for known caregivers / representatives who currently or will assist patient after discharge: THERESA, * Community resources currently utilized None * Can the patient safely return to the preadmission environment? Yes * Has this patient been hospitalized within the prior 30 days at any hospital? No Coverage Notice Reviewer: [id number] - Ira Lassiter Notice Issued Date-Time: 03/12/2018 12:07 Notice Type: IM Discharge Notice Notice Delivered To: Patient Relationship to Patient: Self Staff Midwife Name: Delivery Method: HAND - Hand Delivered Kaur Days: Prior Verbal Notification: Recipient Understood Notice: Yes Recipient Signature: Yes Med Rec Note Co-signed by Attending: Coverage Notice Comment: Last DP export: 03/12/18 2:12 p Patient Name: NOAH MARTINEZ Page 93801 at 1319 All edits/amendments must be made on the electronic document DICTATION DATE: 03/14/18 1314 TRAFFIC MANAGER: MARVIN 03/14/18 8851 RPT#: [id number] DC DATE: STATUS: ADM IN [facility] [address] [place] [address] END OF REPORT
--- NOTE | 2018-03-14 14:05 | NUR ---
THERE WAS A CONSULT IN FOR ON 03/13/18 AND IT WAS NEVER ADRESSED UNTIL NOW , THIS PATIENT HAS DISCHARGE ORDERS IN DEPENDING ON WHAT DORI SAID CALLED DR MEADOWS'S OFFICE AND THEY WERE NOT AWARE OF THE CONSULT FOR THIS PATIENT, TOLD THEM THAT THEY HAVE A CONSULT IN FOR THIS PATIENT PER DR. GAFFNEY
[2018-03-14 16:00] VITALS: BP 140/51
--- NOTE | 2018-03-14 16:16 | MORECARE ---
CASE MANAGEMENT DISCHARGE SUMMARY PATIENT: NOAH MARTINEZ UNIT: [id number] ADM DATE: 03/08/18 AGE: 77 : 41 SEX: F ROOM/BED: D.1206 AUTHOR: IRVINDOC PHYSICIAN: REFERRING PHYSICIAN: KRYSTLE VELÁZQUEZ MD DATE OF SERVICE: 03/14/18 Discharge Plan Patient Name: NOAH MARTINEZ Facility: [facility]:[place] : 1940 Planned Disposition: Anticipated Discharge Date: Discharge Date: Expected LOS: Initial Reviewer: [id number] Initial Review Date: 03/12/2018 Generated: 03/14/18 5:16 pm Comments DCP- Discharge Planning Updated by [id number]: Ira Lassiter on 03/14/18 3:[address] Patient Name: NOAH MARTINEZ Admission Status: ER Accout number: [id number] Admission Date: 03-08-2018 : 1940 Admission Diagnosis:OTHER ACUTE OSTEOMYELITIS, RIGHT ANKLE AND FOOT Attending: KRYSTLE VELÁZQUEZ Current LOS: 6 Anticipated DC Date: Planned Disposition: Primary Insurance: MEDICARE A & B Discharge Planning Comments: CARDIOLOGY TO CONSULT BEFORE DC. RN PUT CONSULT IN TODAY WHEN NOTICED IT WASN'T IN. Furniture Repair Technician: Ira Lassiter DCP- Discharge Planning Updated by [id number]: Angie Subramanian on 03/14/18 12:[address] Patient Name: NOAH MARTINEZ Encounter No: [id number] : 1940 Primary Insurance: MEDICARE A & B Anticipated DC Date: Planned Disposition: External Planned Provider: : DCP follow-up note: Patient and family in agreement with discharge plan. No changes to plan. Patient will discharge to her home with her spouse. CM called Dr. Cabrera and verified that patient did not need home health at this time. Patient to leave dressing in place until she see's Dr. Cabrera in 1 week. Patient did not qualify for a wheelchair per her Physical Therapy notes. Patient wanted to CM to see if her insurance would pay for a shower chair. CM called [facility] to check benefits. CM informed patient that her insurance would not pay for a shower chair, but [facility]ter[facility] has shower chair for < $40.00. Patient spouse stated "It's not that big of a deal. We will pick one up if we need it. " Case management will continue to follow and assist as needed. Angie Subramanian DCP- Discharge Planning Updated by [id number]: Ira Lassiter on 03/12/18 2:[address] Patient Name: NOAH MARTINEZ Admission Status: ER Accout number: [id number] Admission Date: 03-08-2018 : 1940 Admission Diagnosis:OTHER ACUTE OSTEOMYELITIS, RIGHT ANKLE AND FOOT Attending: KRYSTLE VELÁZQUEZ Current LOS: 4 Anticipated DC Date: Planned Disposition: Primary Insurance: MEDICARE A & B Discharge Planning Comments: CM MET WITH PATIENT ABOUT DC PLANNING/NEEDS. SHE STATES SHE PLANS TO DC TO HOME. STATES WANTS A WHEEL CHAIR IF SHE QUALIFIES FOR ONE. USES WALKER AT HOME. [facility] FOR HH LEFT WITH PATIENT PER HER REQUEST, SHE IS TRYING TO FIND OUT WHICH HH IS CLOSE TO HER. IM SIGNED. LIVES AT HOME WITH . CM WILL FOLLOW AND ASSIST NEEDED WITH DC PLANNING/NEEDS. Furniture Repair Technician: Ira Lassiter Appended by Ira Lassiter on 03/12/2018 15:06 AUDIO VISUAL EQUIPMENT RENTAL CLERK: CM WAS CONTACTED BY PATIENT'S THERESA, HE STATES THEY ARE NOT INTERESTED IN IN PATIENT REHAB. STATES WANTS TO TALK TO THE DOCTOR IF THEY THINK SHE NEEDS HOME HEALTH BUT STATES HE DOESN'T SEE WHERE SHE HAS A NEED FOR EITHER ONE. DARREN WITH [facility] NOTIFIED OF HUSBANDS DENIAL FOR INPT REHAB. CM WILL FOLLOW AND ASSIST NEEDED. DCPIA - Discharge Planning Initial Assessment Updated by [email or web address]: Ira Lassiter on 03/12/18 12:15 pm * Is the patient Alert and Oriented? Yes * PCP SOILA * Pharmacy [facility] [place] * Preadmission Environment Home with Family * ADLs Independent * Equipment Walker * List name and contact numbers for known caregivers / representatives who currently or will assist patient after discharge: THERESA, * Community resources currently utilized None * Can the patient safely return to the preadmission environment? Yes * Has this patient been hospitalized within the prior 30 days at any hospital? No Coverage Notice Reviewer: [id number] - Ira Lassiter Notice Issued Date-Time: 03/12/2018 12:07 Notice Type: IM Discharge Notice Notice Delivered To: Patient Relationship to Patient: Self Trimming Cutter Machine Name: Delivery Method: HAND - Hand Delivered Kaur Days: Prior Verbal Notification: Recipient Understood Notice: Yes Recipient Signature: Yes Med Rec Note Co-signed by Attending: Coverage Notice Comment: Last DP export: 03/14/18 12:19 p Patient Name: NOAH MARTINEZ Page 05557 at 1616 All edits/amendments must be made on the electronic document DICTATION DATE: 03/14/181615 REMOTE SENSING RESEARCH SCIENTIST: MARVIN 03/14/181615 RPT#: [id number] DC DATE: STATUS: ADM IN [facility] [address] [place] [address] END OF REPORT
--- NOTE | 2018-03-14 18:22 | NUR ---
SITTING UP ON SIDE OF BED EATING SUPPER. DENIES NEEDS. NO CHANGES NOTED.
[2018-03-14 20:00] VITALS: BP 123/50
[2018-03-15] VITALS: BP 131/46
[2018-03-15 04:00] VITALS: BP 145/52
--- NOTE | 2018-03-15 04:14 | NUR ---
DRESSING TO RIGHT FOOT WAS CHANGED PER PATIENTS FREQUEST. THE DRESSING HAD LOST ITS INTEGRITY AND WAS REDRESSED WITH NEW DRESSINGS EXCEPT THE SPECIAL DRESSING OVER THE WOUND WHICH WAS LEFT IN PLACE.
--- NOTE | 2018-03-15 13:22 | NUR ---
DISCUSSED DISCHARGE, MEDICATION AND FOLLOW-UP INSTRUCTIONS WITH PATIENT AND SPOUSE. VERBALIZED UNDERSTANDING. GAVE PAPER SCRIPT FOR TRAMADOL. IV REMOVED, TIP INTACT. PATIETN AWAITING TO RETURN FROM PHARMACY FOR DISCHARGE.
--- NOTE | 2018-03-15 13:30 | NUR ---
PICKING UP PRESCRIPTION BEFORE TAKING PATIENT HOME. DENIES ANY NEEDS AT THIS TIME.
--- NOTE | 2018-03-18 08:37 | MORECARE ---
CASE MANAGEMENT DISCHARGE SUMMARY PATIENT: NOAH MARTINEZ UNIT: [id number] ADM DATE: 03/08/18 AGE: 77 : 41 SEX: F ROOM/BED: D.1206 AUTHOR: IRVINDOC PHYSICIAN: REFERRING PHYSICIAN: KRYSTLE VELÁZQUEZ MD DATE OF SERVICE: 03/18/18 Discharge Plan Patient Name: NOAH MARTINEZ Facility: [facility]:[place] : 1940 Planned Disposition: Anticipated Discharge Date: Discharge Date: 03/15/2018 Expected LOS: Initial Reviewer: [id number] Initial Review Date: 03/12/2018 Generated: 03/18/18 9:37 am Comments DCP- Discharge Planning Updated by [id number]: Ira Lassiter on 03/14/18 3:[address] Patient Name: NOAH MARTINEZ Admission Status: ER Accout number: [id number] Admission Date: 03-08-2018 : 1940 Admission Diagnosis:OTHER ACUTE OSTEOMYELITIS, RIGHT ANKLE AND FOOT Attending: KRYSTLE VELÁZQUEZ Current LOS: 6 Anticipated DC Date: Planned Disposition: Primary Insurance: MEDICARE A & B Discharge Planning Comments: CARDIOLOGY TO CONSULT BEFORE DC. RN PUT CONSULT IN TODAY WHEN NOTICED IT WASN'T IN. Unified Communications Engineer: Ira Lassiter DCP- Discharge Planning Updated by [id number]: Angie Subramanian on 03/14/18 12:[address] Patient Name: NOAH MARTINEZ Encounter No: [id number] : 1940 Primary Insurance: MEDICARE A & B Anticipated DC Date: Planned Disposition: External Planned Provider: : DCP follow-up note: Patient and family in agreement with discharge plan. No changes to plan. Patient will discharge to her home with her spouse. CM called Dr. Cabrera and verified that patient did not need home health at this time. Patient to leave dressing in place until she see's Dr. Cabrera in 1 week. Patient did not qualify for a wheelchair per her Physical Therapy notes. Patient wanted to CM to see if her insurance would pay for a shower chair. CM called [facility] to check benefits. CM informed patient that her insurance would not pay for a shower chair, but [facility] has shower chair for < $40.00. Patient spouse stated "It's not that big of a deal. We will pick one up if we need it. " Case management will continue to follow and assist as needed. Angie Subramanian DCP- Discharge Planning Updated by [id number]: Ira Lassiter on 03/12/18 2:[address] Patient Name: NOAH MARTINEZ Admission Status: ER Accout number: [id number] Admission Date: 03-08-2018 : 1940 Admission Diagnosis:OTHER ACUTE OSTEOMYELITIS, RIGHT ANKLE AND FOOT Attending: KRYSTLE VELÁZQUEZ Current LOS: 4 Anticipated DC Date: Planned Disposition: Primary Insurance: MEDICARE A & B Discharge Planning Comments: CM MET WITH PATIENT ABOUT DC PLANNING/NEEDS. SHE STATES SHE PLANS TO DC TO HOME. STATES WANTS A WHEEL CHAIR IF SHE QUALIFIES FOR ONE. USES WALKER AT HOME. [facility] FOR HH LEFT WITH PATIENT PER HER REQUEST, SHE IS TRYING TO FIND OUT WHICH HH IS CLOSE TO HER. IM SIGNED. LIVES AT HOME WITH . CM WILL FOLLOW AND ASSIST NEEDED WITH DC PLANNING/NEEDS. Unified Communications Engineer: Ira Lassiter Appended by Ira Lassiter on 03/12/2018 15:06 SLIP CASTER: CM WAS CONTACTED BY PATIENT'S THERESA, HE STATES THEY ARE NOT INTERESTED IN IN PATIENT REHAB. STATES WANTS TO TALK TO THE DOCTOR IF THEY THINK SHE NEEDS HOME HEALTH BUT STATES HE DOESN'T SEE WHERE SHE HAS A NEED FOR EITHER ONE. DARREN WITH [facility] NOTIFIED OF HUSBANDS DENIAL FOR INPT REHAB. CM WILL FOLLOW AND ASSIST NEEDED. DCPIA - Discharge Planning Initial Assessment Updated by [email or web address]: Ira Lassiter on 03/12/18 12:15 pm * Is the patient Alert and Oriented? Yes * PCP SOILA * Pharmacy [facility] [place] * Preadmission Environment Home with Family * ADLs Independent * Equipment Walker * List name and contact numbers for known caregivers / representatives who currently or will assist patient after discharge: THERESA, * Community resources currently utilized None * Can the patient safely return to the preadmission environment? Yes * Has this patient been hospitalized within the prior 30 days at any hospital? No Coverage Notice Reviewer: [id number] - Ira Lassiter Notice Issued Date-Time: 03/12/2018 12:07 Notice Type: IM Discharge Notice Notice Delivered To: Patient Relationship to Patient: Self Hospice Community Liaison Name: Delivery Method: HAND - Hand Delivered Kaur Days: Prior Verbal Notification: Recipient Understood Notice: Yes Recipient Signature: Yes Med Rec Note Co-signed by Attending: Coverage Notice Comment: Last DP export: 03/14/18 3:16 p Patient Name: NOAH MARTINEZ Page 99708 at 0837 All edits/amendments must be made on the electronic document DICTATION DATE: 03/18/18835 GARDEN TRACTOR MECHANIC: MARVIN 03/18/18835 RPT#: [id number] DC DATE:03/15/18 STATUS: DIS IN [facility] [place] [address] [place] [address] END OF REPORT
--- NOTE | 2018-03-18 10:20 | CN ---
PATIENT NAME:NOAH MARTINEZ MEDICAL RECORD: [id number] : [birth year] LOCATION:D. D.1206 ADMIT DATE: 03/08/18 ACCOUNT: [id number] CONSULTING PHYSICIAN: LÁZARO MEADOWS MD REFERRING PHYSICIAN: KRYSTLE VELÁZQUEZ MD DATE OF CONSULTATION: 03/15/2018 CARDIOLOGY CONSULT DIAGNOSES: 1. Peripheral vascular disease. 2. Nonhealing ulcer, right lower extremity. 3. Insulin-dependent diabetes. 4. Hypertension. HISTORY OF PRESENT ILLNESS: Mrs. Martinez presents with a nonhealing ulcer on the right lower extremity, is undergoing antibiotic therapy, underwent arterial evaluation revealing severe infrapopliteal disease bilaterally, right greater than left. For now, consulted for possible revascularization. PHYSICAL EXAMINATION: GENERAL APPEARANCE: Well-nourished, well-developed, appears stated age. Level of distress, comfortable. PSYCHIATRIC: Mental status, alert, normal affect. Orientation, oriented to time, place and person. EYES: Lids and conjunctiva, noninjected. No discharge, no pallor. ENT: Lips, teeth, gums, normal dentition. Oropharynx, no cyanosis, no pallor. NECK: Carotid arteries, bilateral normal upstroke, no bruits, no thrills. JUGULAR VEINS: No jugular venous pressure or distention. CERVICAL LYMPH NODES: Nontender, nonenlarged. THYROID: Not enlarged. Nontender. No nodules. LUNGS: Respiratory effort, unlabored. CHEST: Normal curvature. No thoracic deformity. No chest wall tenderness. Percussion, resonant. Auscultation, clear. No wheezes, no rales, no rhonchi. CARDIOVASCULAR: Precordial exam, nondisplaced. No heaves or pericardial thrills. Rate and rhythm, regular. Heart sounds, normal S1, normal S2. No S3, no gallop, no rub. Systolic murmur, not heard. Diastolic murmur, not heard. EXTREMITIES: No cyanosis, no edema. Peripheral pulses, full and equal in all extremities, except as noted. No bruits appreciated. ABDOMEN: Soft, nondistended. Normal aorta. No bruit. Nontender. No masses. Liver, nontender, no hepatomegaly. Spleen, nontender, no splenomegaly. MUSCULOSKELETAL: No joint tenderness. No joint swelling. No erythema. NEUROLOGICAL: Normal gait, normal strength, normal tone. SKIN: Warm and dry. OVERALL IMPRESSION: Severe peripheral vascular disease. We will plan for aortofemoral runoff. It is okay for her to go home today. Continue her current therapy. Plan for aortofemoral runoff in the near future as an outpatient in hopes of transcatheter revascularization for limb salvage and the ulcer healing. TRANSINT:[id number] Voice Confirmation ID: [id number] DOCUMENT ID: [id number] CONSULT REPORT [id number] NOAH MARTINEZ, LÁZARO NATH at 1020 CC: [id number] DICTATION DATE: 03/15/18 0944 AUTO PAINTER HELPER: 03/15/18 1118 DIS IN 03/15/18 [facility] [address] [place] [address]
== END 2018-03-15 13:30 | disposition home or self-care (01) | DRG 617 ==
LOC: D.ER 02:22 → D.M3 02:43 → D.EDHOLD 02:43 → D.M3 03:29
PROVIDERS: Emergency Medicine; Family Medicine; Internal Medicine Nephrology; Orthopaedic Surgery; ADMIT Family Medicine
PROC: 0Y6T0Z3 Detachment at Right 3rd Toe, Low, Open Approach (ICD-10-PCS; principal; 2018-03-11 17:30)
DX: E11.69 Type 2 diabetes mellitus with other specified complication (principal); M86.171 Other acute osteomyelitis, right ankle and foot; I10 Essential (primary) hypertension; E03.9 Hypothyroidism, unspecified; E11.51 Type 2 diabetes mellitus with diabetic peripheral angiopathy without gangrene

== ENCOUNTER 2018-03-19 08:06 | Outpatient (CLI) | payer MEDICARE, OTHER ==
[~2018-03-19] VITALS: Ht 177.8 cm; Wt 121.4 kg
--- NOTE | ~2018-03-19 | HEMODYNAMI ---
PATIENT:NOAH MARTINEZ MEDICAL RECORD: [id number] : 42 LOCATION:D.CAT ADMISSION DATE: 03/19/18 Generatedon:03/19/201813:15 Patient name: NOAH MARTINEZ Patient #: [id number] SSN: : 1940 Date of study: 03/19/2018 Page: Of Hemodynamic Procedure Report Patient Data Patient Demographics Procedure consent was obtained First Name: NOAH Gender: Female Last Name: MICHELLE : 1940 Patient #: [id number] Age: 77 year(s) Race: Unknown Additional ID: [id number] Contact details [address]: [address] [place] [address] State: [place] City: [place] Zip code: [address] Past Medical History Allergies Allergen Reaction Date Comments Reported Other allergy 03/19/2018 FLU VACCINE, IODINE, BETADINE, LISINOPRIL Admission Admission Data Admission Date: 03/19/2018 Admission Time: 8:06 Lab Results Lab Result Date: 03/19/2018 Lab Result Time: 0:00 Biochemistry Name Units Result Min Max BUN mg/dl 22 --(----)-* 7 18 Creatinine mg/dl 1.4 --(----)*- 0.6 1.3 CBC Name Units Result Min Max Hemoglobin g/dl 14.3 --(*---)-- 13.5 17.5 Procedure Procedure Types Cath Procedure Peripheral Cath Diagnostic Procedure Nipple Machine Operator Peripheral Procedures Oqqhd-Ftzhhpx-Oeg-Off Procedure Description Procedure Date Procedure Date: 03/19/2018 Procedure Start Time: 13:06 Procedure End Time: 13:12 Procedure Staff Name Function Edmundo Rizvi MD Performing Physician Maryjane Bull RT Monitor Jeff Morrow RT Scrub Julieth Kuhn RN Nurse Joss Moreno RT Monitor Procedure Data Cath Procedure Fluoroscopy Diagnostic fluoroscopy Total fluoroscopy Time: 1 time: 1 min min Diagnostic fluoroscopy Total fluoroscopy dose: 260 dose: 260 mGy mGy Contrast Material Contrast Material Type Amount (ml) Isovue 300 60 Entry Location Entry Primary Successful Side Size Upsize Upsize Entry Closure Succes sful Closure Location (Fr) 1 (Fr) 2 (Fr) Remarks Device Remarks Femoral Left 5 Fr Exoseal artery Estimated blood loss: 5 ml Diagnostic catheters Device Type Used For End Catheter Placement DIAGNOSTIC UF 5Fr Procedure catheter ([id number]) Procedure Complications No complications Procedure Medications Medication Administration Route Dosage 0.9% NaCl I.V. 100 ml/hr Oxygen etCO2 Nasal cannula 2 l/min Lidocaine 2% added to field 20 Heparin Flush Bag added to field 2 bags (1000units/500ml NS) Versed I.V. 2 mg Fentanyl I.V. 50 mcg Versed I.V. 2 mg Fentanyl I.V. 50 mcg Versed I.V. 1 mg Hemodynamics Rest HGB: 14.3 (g/dl) Heart Rate: 72 (bpm) Snapshots Pre Cath Intra NCS Post Cath Vital Signs Time Heart Resp SPO2 etCO2 NIBP (mmHg) Rhythm Pain Sedation Rate (ipm) (%) (mmHg) Status Level (bpm) 12:52:57 84 17 100 29.9 166/76(115) NSR 0 (11) 10(A) , No pain 12:57:19 67 18 99 24.7 141/71(106) NSR 0 (11) 10(A) , No pain 13:01:39 56 20 100 11.9 136/62(109) NSR 0 (11) 10(A) , No pain 13:05:55 78 15 100 13 136/67(90) NSR 0 (11) 9(A) , No pain 13:10:11 79 16 99 12 136/65(96) NSR 0 (11) 10(A) , No pain Medications Time Medication Route Dose Verified Delivered Reason Notes Eff ectiveness by by 12:52:11 0.9% NaCl I.V. 100 Edmundo Julieth used for ml/hr Dmitri Kuhn candy supervisor 12:52:19 Oxygen etCO2 2 Edmundo Julieth used for Nasal l/min Dmitri Kuhn procedure cannula RN 12:52:24 Lidocaine 2% added 20ml Edmundomireille Wyatt for local to vial Dmitri Rizvi MD anesthetic field 12:52:30 Heparin Flush added 2 Edmundo Edmundo used for Bag to bags Dmitri Rizvi MD procedure (1000units/500ml field NS) 13:01:59 Versed I.V. 2 mg Edmundo Julieth for Dmitri Kuhn sedation RN 13:02:05 Fentanyl I.V. 50 Edmundo Julieth for mcg Dmitri Kuhn sedation RN 13:07:26 Versed I.V. 2 mg Edmundo Julieth for Dmitri Kuhn sedation RN 13:07:30 Fentanyl I.V. 50 Edmundo Juliteh for mcg Dmitri Kuhn sedation RN 13:10:13 Versed I.V. 1 mg Edmundo Julieth for Dmitri Kuhn sedation regulator pin inserter Log Time Note 12::10 Signed procedure consent form obtained from patient. 12::12 Diagnostic Cath status Elective 12::12 Time tracking: Regular hours (M-F 7:00 - 5:00) 12:09:16 Plan of Care:Hemodynamics will remain stable., Cardiac rhythm will remain stable., Comfort level will be maintained., Respiratory function will remain adequate., Patient/ family verbilizes understanding of procedure.. 12:34:51 Jeff Morrow RT(R) sent for patient. Start room use. 12:41:07 Patient received from Pre/Post Procedure Room to CCL 1 Alert and oriented. Tansferred to table in Supine position. 12:41:09 Warm blankets applied, and sonya hugger turned on for patient comfort. 12:41:09 Correct patient and procedure confirmed by team. 12:41:16 ECG and BP/O2 sat monitors applied to patient. 12:51:40 Vital chart was started 12:52:11 0.9% NaCl 100 ml/hr I.V. was administered by Julieth Kuhn RN; used for procedure; 12:52:19 Oxygen 2 l/min etCO2 Nasal cannula was administered by Julieth Kuhn RN; used for procedure; 12:52:24 Lidocaine 2% 20ml vial added to field was administered by Edmundo Rizvi MD; for local anesthetic; 12:52:30 Heparin Flush Bag (1000units/500ml NS) 2 bags added to field was administered by Edmundo Rizvi MD; used for procedure; 12:55:15 Is the patient allergic to Iodine/contrast media? Yes. 12:55:19 Was the patient premedicated? Yes 12:55:30 Baseline sample Acquired. 12:55:43 Rhythm: sinus rhythm 12:56:23 Full Disclosure recording started 12:56:28 H&P Date Dictated: 03/19/2018 New H&P dictated by physician.. 12:56:29 Pre-procedure instructions explained to patient. 12:56:29 Pre-op teaching completed and patient verbalized understanding. 12:56:31 Family in patients room. 12:56:32 Patient NPO since Midnight. 12:57:14 Patient allergic to Other allergyFLU VACCINE, IODINE, BETADINE, LISINOPRIL 12:57:19 Is patient on blood thinner?Yes 12:57:25 PRE LOADED 12:57:30 Patient diabetic? No. 12:57:34 Patient not . Patient is over age 55. 12:57:35 Previous problem with sedation/anesthesia? No ? 12:57:37 Snore? Yes 12:57:38 Sleep apnea? No 12:57:39 Deviated septum? No 12:57:40 Opens mouth fully? Yes 12:57:40 Sticks out tongue? Yes 12:57:42 Airway obstruction? No ? 12:57:47 Dentures? No ? 12:58:20 UNABLE TO CHECK DISTAL PULSES..PATIENT WILL NO ALLOW DIABETIC BOOTS TO COME OFF 12:58:24 Patient pain scale 0/10 ?. 12:58:28 IV patent on arrival in left forearm with 0.9% NaCl at [facility]. 12:58:52 Lab Result : Creatinine 1.4 mg/dl 12:58:52 Lab Result : BUN 22 mg/dl 12:58:52 Lab Result : Hemoglobin 14.3 g/dl 12:58:55 Lab results completed and on chart. 12:59:04 Bilateral groins area was prepped with chlora-prep and draped in sterile fashion 12:59:05 Alarms reviewed by R. N. 12:59:05 Sharps counted by scrub and verified by R.N. 12:59:08 Use device set CATH PACK 12:59:10 ACIST Syringe (14525) opened to sterile field. 12:59:10 ACIST Hand Control (86329) opened to sterile field. 12:59:10 ACIST Manifold (32163) opened to sterile field. 12:59:11 Medline Cath Pack ([id number]) opened to sterile field. 12:59:11 Bag Decanter (2002S) opened to sterile field. 12:59:17 DIAGNOSTIC WIRE .035 260cm J wire (468478) opened to sterile field. 12:59:27 SHEATH 5FR [place] (TAG316) opened to sterile field. 13:00:23 --------ALL STOP TIME OUT------ 13:00:23 Final Timeout: patient, procedure, and site verified with staff and physician. All members of the team are in agreement. 13:00:27 Bilateral groins site verified by team. 13:00:29 Physical assessment completed. ASA score P 2 - A patient with mild systemic disease as per Edmundo Rizvi MD. 13:00:31 Sedation plan: IV Moderate Sedation Medication:Versed, Fentanyl 13:01:59 Versed 2 mg I.V. was administered by Julieth Kuhn RN; for sedation; 13:02:05 Fentanyl 50 mcg I.V. was administered by Julieth Kuhn RN; for sedation; 13:06:15 Zero performed for pressure channel P1 13:06:28 Procedure started. 13:06:33 Zero performed for pressure channel P1 13:06:55 Local anesthetic to left femerol artery with Lidocaine 2% by Edmundo Rizvi MD.INITIAL ACCESS ONLY 13:07:19 A 5 Fr sheath was inserted into the Left Femoral artery 13:07:26 Versed 2 mg I.V. was administered by Julieth Kuhn RN; for sedation; 13:07:29 A DIAGNOSTIC UF 5Fr catheter ([id number]) was advanced over the wire and used for Procedure. 13:07:30 Fentanyl 50 mcg I.V. was administered by Julieth Kuhn RN; for sedation; 13:08:10 Abdominal angiogram w/ runoff was performed. 13:08:53 Left leg runoff performed. 13:08:54 Right leg runoff performed. 13:10:04 Catheter removed. 13:10:09 EXOSEAL 5Fr (EX500) opened to sterile field. 13:10:13 Versed 1 mg I.V. was administered by Julieth Kuhn RN; for sedation; 13:10:35 Sheath removed intact; hemostasis achieved with Exoseal to the Left Femoral artery. 13:11:10 Procedure ended.(Physican Out) 13:11:17 Fluoroscopy time 01.00 minutes. 13:11:21 Fluoroscopy dose: 260 mGy 13:11:21 Flurop Dose total: 260 13:11:25 Contrast amount:Isovue 300 60ml. 13:11:29 Post-op/insertion site Left Femoral artery dressed using a 4 x 4 and Tegaderm. 13:11:40 Post-procedure physical assessment completed. ASA score P 2 - A patient with mild systemic disease as per Edmundo Rizvi MD. 13:11:42 Post procedure rhythm: sinus rhythm 13:11:55 Estimated blood loss: 5 ml 13:11:57 Post procedure instruction explained to patient.Patient verbalizes understanding. 13:11:57 Patient needs reinforcement of post procedure teaching. 13:12:32 Procedure and supply charges have been captured, reviewed, submitted and are correct. 13:12:35 Procedure Complication : No complications 13:12:37 Vital chart was stopped 13:12:37 See physician's report for complete and final results. 13:12:39 Report given to Pre/Post Procedure Room. 13:12:41 Patient transfered to Pre/Post Procedure Room with Bed. 13:12:42 Procedure ended. 13:12:42 Full Disclosure recording stopped 13:12:44 End room use (Document Last) Device Usage Item Name Manufacture Quantity Catalog Hospital Part Current Minimal L ot# / Number Charge Number Stock Stock Serial# Code ACIST Acist 1 57036 739113 071397 206338 20 Syringe Medical (81050) Systems Inc ACIST Hand Acist 1 23603 899771 366448 004189 5 Control Medical (86130) Systems Inc ACIST Acist 1 98049 800758 221160 903086 5 Manifold Medical (93792) Systems Inc Medline Medline 1 [id number] 317274 86961 826736 5 Cath Pack ([id number]) Bag Microtek 1 928080 17598 701194 5 Decanter Medical Inc. () DIAGNOSTIC [place] 1 253719 680107 806462 284388 30 WIRE .035 260cm J wire (576805) SHEATH 5FR Terumo 1 WGA968 166019 383317 525862 5 [place] (ZDJ856) DIAGNOSTIC Cardinal 1 [id number] 229776 318865 827322 10 UF 5Fr Health catheter ([id number]) EXOSEAL 5Fr Cardinal 1 EX500 764288 761617 956238 10 (EX500) Health Signature Audit [place] Stage Time Signature Unsigned Intra-Procedure 03/19/2018 Maryjane Bull 1:15:51 PM RT(R) Signatures Monitor : Maryjane Bull Signature : RT Date : Time : Monitor : Joss Moreno RT Signature : Date : Time : [address] [place] [address]
[~2018-03-19 08:06] MED LIST changes: +BACTRIM DS1 TAB PO
[2018-03-19 08:53] VITALS: BP 147/48; Ht 177.8 cm; Wt 121.4 kg
[2018-03-19 09:05] LABS: BASOPHILS 0.3 % (0-2); EOSINOPHILS 1.7 % (0-7); HEMATOCRIT 41.6 % (36.0-48.0); HEMOGLOBIN 14.3 g/dL (12-16); IMMATURE GRANULOCYTES 0.5 % (0-5); LYMPHOCYTES 23.1 % (15-50); MCH 30.9 pg (26.0-34.0); MCHC 34.4 g/dL (31.0-37.0); MCV 89.8 fL (80.0-100.0); MEAN PLATELET VOLUME 9.9 fL (7.4-10.4); MONOCYTES 9.5 % (2-11); NEUTROPHILS 64.9 % (40-80); PLATELET COUNT 250 10x3/uL (130-400); RBC 4.63 10x6/uL (4.00-5.40); WBC 9.7 10x3/uL (4.8-10.8)
[2018-03-19 09:24] LABS: CALCIUM 9.2 mg/dL (8.5-10.1); CARBON DIOXIDE 24.7 mmol/L (21.0-32.0); CREATININE - SERUM 1.4 mg/dL (0.6-1.3); POTASSIUM - SERUM 4.7 mmol/L (3.5-5.1)
--- NOTE | 2018-03-19 13:40 | NUR ---
LEFT GROIN DRESSING C/D/I. PT RESTING COMFORTABLY. NO HEMATOMA NOTED. LEFT PEDAL PULSE PRESENT. CALL LIGHT WITHIN REAC. VSS.
--- NOTE | 2018-03-19 13:55 | NUR ---
LEFT GROIN DRESSING C/D/I. NO S/S OF HEMATOMA NOTED. CALL LIGHT WITHIN REACH. VSS. PT KEEPING LEFT LEG STRAIGHT.
--- NOTE | 2018-03-19 14:15 | NUR ---
HEAD OF BED INC TO 30 DEGREES. RIGHT GROIN DRESSING C/D/I. NO S/S OF HEMATOMA. PT SET UP WITH SANDWICH TRAY AND DRINK. VSS. DENIES NAUSEA.
--- NOTE | 2018-03-19 15:00 | NUR ---
LEFT FA PIV D/C'D WITH CATH TIP INTACT. PT TOLERATED WELL. LEFT GROIN DRESSING C/D/I. NO S/S OF HEMATOMA NOTED. PT SAT UP TO SIDE OF BED AND AMBULATED TO RESTROOM. VOIDED WITHOUT DIFFICULTY. USED WALKER TO AMBULATE. NO S/S OF DISTRESS NOTED.
--- NOTE | 2018-03-19 15:15 | NUR ---
LEFT GROIN DRESSING C/D/I. NO S/S OF HEMATOMA. DISCUSSED DISCHARGE INSTRUCTIONS WITH PT AND PT'S FAMILY. THEY VOICED UNDERSTANDING.
--- NOTE | 2018-03-19 15:27 | NUR ---
PT TAKEN OUT BY WHEELCHAIR TO VEHICLE. ALL BELONGINGS IN HAND. NO S/S OF DISTRESS NOTED.
--- NOTE | 2018-03-20 18:15 | HP ---
PATIENT: NOAH MARTINEZ MEDICAL RECORD: [id number] ACCOUNT: [id number] LOCATION:KARSTEN : 42 ADMISSION DATE: 03/19/18 PCP: JACK CM DO HISTORY AND PHYSICAL EXAMINATION DIAGNOSES: 1. Peripheral vascular disease. 2. Nonhealing ulcer of right lower extremity. 3. Insulin-dependent diabetes. 4. Hypertension. HISTORY OF PRESENT ILLNESS: Mrs. Martinez presents with nonhealing ulcer of the right lower extremity. She is undergoing antibiotic therapy, underwent arterial evaluation revealing severe infrapopliteal disease bilaterally, right greater than left, now for possible revascularization. REVIEW OF SYSTEMS: The patient reports easy bruising but reports no swollen glands. The patient reports no fever, no night sweats, no significant weight gain, no significant weight loss. No significant exercise tolerance. The patient reports no dry eyes, no irritation, no vision change. Patient reports no difficulty hearing and no ear pain. Patient reports no frequent nose bleeds or nose and sinus problems. Patient reports on arm pain on exertion. No shortness of breath while lying down. No history of heart murmur. Patient reports no cough, no wheezing or coughing up blood. Patient reports no abdominal pain, no vomiting. Normal appetite. No diarrhea and not vomiting blood. No nausea and no constipation. Patient reports no incontinence. No difficulty urinating. No hematuria. No increased frequency. Patient reports no muscle aches. No weakness, no arthralgias, no back pain. No swelling of the extremities. Patient reports no abnormal mole, no jaundice, no rashes. Reports no loss of consciousness. No weakness and no numbness. No seizures, dizziness, or headaches. The patient reports no depression, no sleep disturbance, feeling safe in a relationship and no alcohol abuse. Patient reports on fatigue. Reports no runny nose or sinus pressure. No itching, no hives, and no frequent sneezing. PHYSICAL EXAMINATION: GENERAL APPEARANCE: Well-nourished, well-developed, appears stated age. Level of distress, comfortable. PSYCHIATRIC: Mental status, alert, normal affect. Orientation, oriented to time, place and person. EYES: Lids and conjunctiva, noninjected. No discharge, no pallor. ENT: Lips, teeth, gums, normal dentition. Oropharynx, no cyanosis, no pallor. NECK: Carotid arteries, bilateral normal upstroke, no bruits, no thrills. JUGULAR VEINS: No jugular venous pressure or distention. CERVICAL LYMPH NODES: Nontender, nonenlarged. THYROID: Not enlarged. Nontender. No nodules. LUNGS: Respiratory effort, unlabored. CHEST: Normal curvature. No thoracic deformity. No chest wall tenderness. Percussion, resonant. Auscultation, clear. No wheezes, no rales, no rhonchi. CARDIOVASCULAR: Precordial exam, nondisplaced. No heaves or pericardial thrills. Rate and rhythm, regular. Heart sounds, normal S1, normal S2. No S3, no gallop, no rub. Systolic murmur, not heard. Diastolic murmur, not heard. EXTREMITIES: No cyanosis, no edema. Peripheral pulses, full and equal in all extremities, except as noted. No bruits appreciated. ABDOMEN: Soft, nondistended. Normal aorta. No bruit. Nontender. No masses. HISTORY AND PHYSICAL [id number] NOAH MARTINEZ Liver, nontender, no hepatomegaly. Spleen, nontender, no splenomegaly. MUSCULOSKELETAL: No joint tenderness. No joint swelling. No erythema. NEUROLOGICAL: Normal gait, normal strength, normal tone. SKIN: Warm and dry. OVERALL IMPRESSION: Limb threatening ischemia, nonhealing ulcer, right lower extremity. We will proceed with aortofemoral runoff in hopes of transcatheter revascularization. TRANSINT:[id number] Voice Confirmation ID: [id number] DOCUMENT ID: [id number] LÁZARO MEADOWS MD at 1815 CC: [id number] DICTATION DATE: 03/19/18 1018 WARP DOFFER: 03/19/18 1029 DEP CLI 03/19/18 [facility] [address] [place] [address]
--- NOTE | 2018-03-20 18:15 | OP ---
PATIENT NAME: NOAH MARTINEZ MEDICAL RECORD: [id number] :42 LOCATION:D.CAT ADMISSION DATE: SURGEON: LÁZARO MEADOWS MD DATE OF OPERATION: 03/19/2018 DATE OF SERVICE: 03/19/2018 PROCEDURES: 1. Aortofemoral runoff. 2. Abdominal aortography. INDICATION: Claudication, peripheral vascular disease, nonhealing ulcer, diabetes. PROCEDURE IN DETAIL: After informed consent was obtained and after a detailed description of the risks, benefits as well as alternative therapies, the patient elected to proceed with angiogram and aortofemoral runoff. The left femoral area was prepped and draped in normal sterile fashion. Left femoral artery was cannulated via modified Seldinger technique with placement of 5-Bahamian sheath. All catheters exchanged through this sheath. FINDINGS: Abdominal aortography was performed. The catheter was pulled down for aortofemoral runoff. Abdominal aortography reveals no significant abdominal aortic disease, no dissection or aneurysm formation. RIGHT LEG: A. Iliac: The common internal and external iliacs have no significant peripheral vascular disease. B. Femoral system: The common and deep femoral are widely patent. Superficial femoral have mild irregularities, none greater than 30%, no flow-limiting stenosis. C. Popliteal and infrapopliteal vessels are widely patent with good 3-vessell runoff to the foot. LEFT LEG: A. Iliac: The common internal and external iliacs have no significant peripheral vascular disease. B. Femoral system: The common and deep femoral are widely patent. Superficial femoral have mild irregularities, none greater than 30%, no flow-limiting stenosis. C. Popliteal and infrapopliteal vessels are widely patent with good 3-vessell runoff to the foot. OVERALL IMPRESSION: Minimal peripheral vascular disease is present. No flow-limiting stenosis. Continue medical management of the peripheral vascular disease and peripheral risk factors. TRANSINT:[id number] Voice Confirmation ID: [id number] DOCUMENT ID: [id number] OPERATIVE REPORT [id number] NOAH MARTINEZ JEFFREY MD at 1815 CC: [id number] DICTATION DATE: 03/19/18 1316 KETTLE CLEANER: 03/19/18 1338 DEP CLI 03/19/18 [facility] [address] [place] [address]
== END 2018-03-19 15:15 | disposition home or self-care (01) ==
LOC: D.CATH 08:06
PROVIDERS: Internal Medicine Interventional Cardiology
DX: I70.213 Atherosclerosis of native arteries of extremities with intermittent claudication, bilateral legs (principal); E11.9 Type 2 diabetes mellitus without complications; I10 Essential (primary) hypertension

== ENCOUNTER 2018-03-25 06:35 | Outpatient (CLI) | payer MEDICARE, OTHER ==
[~2018-03-25] VITALS: Ht 177.8 cm; Wt 120.5 kg
[2018-03-25 06:40] VITALS: BP 129/69; Ht 177.8 cm; Wt 120.5 kg
--- NOTE | 2018-03-25 13:33 | NUR ---
0940-RECD FROM ER TO WAITING ROOM. EXPLAINED TO PATIENT AND ALL ROOMS ARE FULL AND WILL GET HER IN SOON POSSIBLE. 1000-TO ROOM 2503. ER CALLED TO FORWARD A COPY OF THE ORDERS. 1100-ORDERS RECD. 1110-LARGE IMPACTION OF SOLID STOOL REMOVED FOLLOWED BY ENEMA. 1130-UP TO BATHROOM, DISCOLORED WATER EXPELLED. 1145-ADDITIONAL ENEMA SOLUTION GIVEN. 1215-UP TO BATHROOM, EXPELLED SOFT FORMED STOOL. 1230-ADDITIONAL STOOL EXPELLED. 1240-RETURNED TO BED, WANTS TO REST. LEAVES TO GET OTC MIRALAX AND COLACE. 1320- RETURNS -DISCHARGE INSTRUCTIONS REVIEWED. 1330-D/C HOME VIA WHEELCHAIR.
== END 2018-03-25 10:31 | disposition short-term general hospital (02) ==
LOC: D.OPS 06:35 → D.ER 06:35 → EDSTATUS 10:00 → D.ER 10:31
DX: K59.00 Constipation, unspecified (principal)

== ENCOUNTER 2018-07-21 08:05 | Inpatient (IN) | payer MEDICARE, OTHER ==
--- NOTE | 2018-07-21 08:54 | NUR ---
PT LEAVING THE ED AT THIS TIME, TRANSPORTED VIA STRETCHER TO MEDICAL IMAGING. NO SIGNS OF DISTRESS NOTED WHEN LEAVING.
[2018-07-21 08:58] LABS: BASOPHILS 0 % (0-2); EOSINOPHILS 0.3 % (0-7); HEMATOCRIT 41.3 % (36.0-48.0); HEMOGLOBIN 14.2 g/dL (12-16); IMMATURE GRANULOCYTES 0.3 % (0-5); LYMPHOCYTES 4.9 % (15-50); MCH 30.9 pg (26.0-34.0); MCHC 34.4 g/dL (31.0-37.0); MEAN PLATELET VOLUME 9.5 fL (7.4-10.4); MONOCYTES 0.5 % (2-11); PLATELET COUNT 192 10x3/uL (130-400); RBC 4.59 10x6/uL (4.00-5.40); RDW 13.1 % (11.5-14.5); WBC 8.8 10x3/uL (4.8-10.8)
[2018-07-21 09:06] LABS: APTT 24.5 SECONDS (22.8-39.4); INR 1.09 (0.85-1.17); PROTIME 13.6 SECONDS (11.6-15.0)
[2018-07-21 09:13] LABS: ALBUMIN 3.4 g/dL (3.4-5.0); ALKALINE PHOSPHATASE 160 U/L (46-116); ALT (SGPT) 58 U/L (10-68); BILIRUBIN - TOTAL 0.59 mg/dL (0.2-1.3); CALC OSMOLALITY 279 mosm/kg (275-300); CALCIUM 9.5 mg/dL (8.5-10.1); CARBON DIOXIDE 24.1 mmol/L (21.0-32.0); CHLORIDE - SERUM 102 mmol/L (98-107); CREATININE - SERUM 1.4 mg/dL (0.6-1.3); GLUCOSE 136 mg/dL (74-106); POTASSIUM - SERUM 4.4 mmol/L (3.5-5.1); PROTEIN - SERUM 7.3 g/dL (6.4-8.2); SODIUM 137 mmol/L (136-145); UREA NITROGEN 25 mg/dL (7-18); eGFR NON AFRICAN AMERICAN 39 mL/min (90-120)
[2018-07-21 09:24] LABS: AMYLASE - SERUM 73 U/L (25-115); CKMB 2.4 U/L (0.0-3.6); CREATINE KINASE 141 UL (21-215); LIPASE 254 U/L (73-393); MAGNESIUM - SERUM 1.8 mg/dL (1.8-2.4); THYROID STIMULATING HORMONE 3.49 uIU/mL (0.36-3.74)
[2018-07-21 09:25] LABS: TROPONIN-I < 0.017 ng/mL (0.000-0.060)
--- NOTE | 2018-07-21 09:26 | NUR ---
PT BACK FROM MEDICAL IMAGING.
--- NOTE | 2018-07-21 09:45 | NUR ---
FSBS 139
[2018-07-21 10:18] LABS: APPEARANCE CLEAR (CLEAR); COLOR YELLOW (YELLOW); NITRITE NEGATIVE (NEGATIVE)
[2018-07-21 10:19] LABS: BILIRUBIN NEGATIVE (NEGATIVE); GLUCOSE NEGATIVE (NEGATIVE); KETONE NEGATIVE (NEGATIVE); PROTEIN TRACE mg/dL (NEGATIVE); UROBILINOGEN NORMAL (NORMAL)
[2018-07-21 10:20] LABS: AMORPHOUS SEDIMENT <1+ /lpf (NONE SEEN); BACTERIA MODERATE /hpf (NONE SEEN); EPITHELIAL CELLS 0-5 /hpf (0-5); MUCUS <1+ /lpf (NONE SEEN); RED CELLS - URINE 0-5 /hpf (0-5)
[2018-07-21 10:25] LABS: UDS - AMPHET NEGATIVE QUAL (NEGATIVE); UDS - BARB POSITIVE QUAL (NEGATIVE); UDS - BENZO NEGATIVE QUAL (NEGATIVE); UDS - COCAINE NEGATIVE QUAL (NEGATIVE); UDS - OPIATE NEGATIVE QUAL (NEGATIVE); UDS - PCP NEGATIVE QUAL (NEGATIVE); UDS - THC NEGATIVE QUAL (NEGATIVE)
[2018-07-21 10:30] VITALS: BP 116/59
--- NOTE | 2018-07-21 10:31 | NUR ---
WILL ADMINISTER EACH ORDERED LITER OF LR, 3 TOTAL, ONCE PREVIOUSLY INITITED LITER IS COMPLETE.
--- NOTE | 2018-07-21 11:13 | NUR ---
PT SITTING IN SEMI-BANSAL'S, RESPIRATIONS EVEN AND UNLABORED. NO SIGNS OF DISTRESS. PT NOW EASILY WAKES TO VERBAL STIMULI AND IS ORIENTED X3. PT AWARE SHE IS BEING ADMITTED TO [facility], AWAITING BED ASSIGNMENT. IV INFUSING ORDERED WITHOUT SIGNS OF INFILTRATION. CALL LIGHT IN REACH, FAMILY MEMBER AT THE BEDSIDE. WILL CONTINUE TO MONITOR.
--- NOTE | 2018-07-21 12:30 | NUR ---
PT ARRIVED TO FLOOR VIA STRECHER WITH FAMILY AT BEDSIDE. PT WAS ABLE TO AMBULATE WITH WALKER TO BED. PT LETHARGIC IN ANWERING QUESTIONS BUT WAS ABLE TO ANSWER APPROPRIATLY. PT TEMP 98.3 VITALS STABLE. PT DENIES ANY FURTHER NEEDS OR PAIN AT THIS TIME. BED ALARM IN PLACE,BED LOW, CALL LIGHT WITHIN REACH. WILL CONTINUE TO MONITOR.
[2018-07-21 14:47] VITALS: BMI 42.4
--- NOTE | 2018-07-21 14:59 | NUR ---
ASSESSMENT COMPLETE PT LETHARGIC DISORIENTED X SITUATION AND TIME RESP UNLABORED SKIN W/D COLOR PALE PT STATES VOMITTED X2 THIS AM DENIES ANY PAIN OR NAUSEA AT THIS TIME IV OF NS PATENT TO RFA IV SITE PER PUMP WITHOUT DIFFICULTY SITE FREE OF REDNESS OR EDEMA
[2018-07-21 15:40] VITALS: BP 120/47
--- NOTE | 2018-07-21 19:40 | NUR ---
RECIEVED GETTING OUT OF BED WITH WALKER TO GO TO THE B/R. ASSISTING HER . REQUIRES ASSIST TO SIT UP AND BECOMES SOB EASILY. HAS TO SIT ON SIDE OF BED TO CATCH HER BREATH. IV TO RIGHT FA WITH LR AT 100CC/HR. PT MOANS A LOT AND KEEPS HER EYES CLOSED. STATES HE ONLY HAS TO HELP HER GET INTO HER CHAIR. DENIES ANY NEEDS AT THIS TIME.
[2018-07-21 20:00] VITALS: BP 134/45
[2018-07-22] VITALS: BP 140/46
[2018-07-22 05:41] LABS: ALBUMIN 2.6 g/dL (3.4-5.0); ANION GAP 14.5 mmol/L (8-16); BILIRUBIN - TOTAL 0.84 mg/dL (0.2-1.3); CALCIUM 8.5 mg/dL (8.5-10.1); CARBON DIOXIDE 24.4 mmol/L (21.0-32.0); CREATININE - SERUM 1.5 mg/dL (0.6-1.3); MAGNESIUM - SERUM 1.7 mg/dL (1.8-2.4); POTASSIUM - SERUM 4.9 mmol/L (3.5-5.1); PROTEIN - SERUM 5.5 g/dL (6.4-8.2)
[2018-07-22 05:42] LABS: HEMATOCRIT 35.4 % (36.0-48.0); MCH 30.8 pg (26.0-34.0); MCHC 33.9 g/dL (31.0-37.0); MCV 90.8 fL (80.0-100.0); MEAN PLATELET VOLUME 9.8 fL (7.4-10.4); PLATELET COUNT 185 10x3/uL (130-400); RDW 13.5 % (11.5-14.5); WBC 30.3 10x3/uL (4.8-10.8)
--- NOTE | 2018-07-22 06:17 | NUR ---
RECIEVED LAB RESULTS AND WBC 30.3. NOTIFIED BISI ROY WITH NEW ORDER FOR PULMONARY CONSULT AND HAVE STOCK ASSOCIATE CALL HER BACK WITH RESULTS.
--- NOTE | 2018-07-22 07:10 | NUR ---
REPORT RECIEVED FROM SENIOR PENSIONS ADMINISTRATOR AND PATIENT CARE ASSUMED. PATIENT LAYING IN BED WITH EYES CLOSED AND BREATHING EVENLY.PATIENT IS STABLE AND VSS. WILL CONTINUE WITH PLAN OF CARE. SR UP X 2 BED IN LOW POSITION.
[2018-07-22 08:08] VITALS: BP 120/40
--- NOTE | 2018-07-22 09:40 | NUR ---
PATIENT REFUSED SCD'S.
[2018-07-22 10:38] VITALS: BMI 39.8
--- NOTE | 2018-07-22 10:42 | NUR ---
DR BENTON IN ROOM. NO NEW ORDERS RECEIVED.
[2018-07-22 10:59] LABS: LYMPHOCYTES 9 % (15-50); MONOCYTES 7 % (2-11); NEUTROPHILS 70 % (40-80); PLATELET ESTIMATE NORMAL; ROULEAUX OCC
[2018-07-22 11:41] VITALS: BP 132/51
--- NOTE | 2018-07-22 14:30 | NUR ---
PATIENT IS STABLE AND UNCHANGED. WILL CONTINUE TO MONITOR.
[2018-07-22 17:20] VITALS: BP 130/55
--- NOTE | 2018-07-22 19:22 | NUR ---
PT USING CALL LIGHT FOR ASSIST TO RESTROOM. PT IN RESTROOM WHEN NURSE ENTERED ROOM USING A WALKER. INCONT A SMALL AMOUNT ON FLOOR. CHANGED CLOTHES AND PAD, ASSISTED PT BACK TO BED WITH MINIMAL STANDBYE ASSIST. PT USED WALKER. BACK TO BED, 2L O2 NC. NS INFUSING TO RIGHT FOREARM 20G. PT DENIES ANY NEEDS. NOURISHMENT OFFERED WILL CPOC
[2018-07-22 20:00] VITALS: BP 116/62
--- NOTE | 2018-07-22 20:52 | NUR ---
PT UP TO RESTROOM WITH WALKER AND MINIMAL ASSIST STANDBYE. PT BACK TO BED. 2L O2 NC. NS INFUSING ORDERED TO RIGHT FOREARM. NOURISHMENT PROVIDED. PT WILL CALL FOR ASSIST WHEN NEEDED WILL CPOC
[2018-07-23] VITALS (7 sets, daily range): BP systolic 115–171; BP diastolic 52–69
[2018-07-23 07:30] LABS: ALBUMIN 2.5 g/dL (3.4-5.0); ANION GAP 11.4 mmol/L (8-16); BILIRUBIN - TOTAL 0.84 mg/dL (0.2-1.3); CARBON DIOXIDE 26.1 mmol/L (21.0-32.0); CREATININE - SERUM 1.4 mg/dL (0.6-1.3); MAGNESIUM - SERUM 1.9 mg/dL (1.8-2.4); POTASSIUM - SERUM 4.5 mmol/L (3.5-5.1); PROTEIN - SERUM 6.2 g/dL (6.4-8.2)
[2018-07-23 07:47] LABS: BASOPHILS 0.1 % (0-2); EOSINOPHILS 0.2 % (0-7); HEMATOCRIT 34.5 % (36.0-48.0); HEMOGLOBIN 11.6 g/dL (12-16); IMMATURE GRANULOCYTES 0.6 % (0-5); LYMPHOCYTES 6.7 % (15-50); MCH 30.4 pg (26.0-34.0); MCHC 33.6 g/dL (31.0-37.0); MCV 90.3 fL (80.0-100.0); MEAN PLATELET VOLUME 9.7 fL (7.4-10.4); MONOCYTES 5.4 % (2-11); PLATELET COUNT 189 10x3/uL (130-400); RBC 3.82 10x6/uL (4.00-5.40); RDW 13.6 % (11.5-14.5); WBC 26.7 10x3/uL (4.8-10.8)
--- NOTE | 2018-07-23 08:00 | NUR ---
PT RESTING IN BED EATING BREAKFAST. AM MEDICATIONS GIVEN ORDERED. PT CONCERNED THAT HER TRAJENTA HAS NOT BEEN RESTARTED YET, SPOKE WITH PHARMACY AND PER PHARMACY, WE DO NOT CARRY TRAJENTA. SPOKE WITH NOAH AKERS AND SHE STATES THAT IF THE PT CAN GET HER MEDICATION HERE THEN WE CAN RESTART IT. PT CALLED HER FAMILY AND THEY WILL BRING IT TO THE HOSPITAL THIS AFTERNOON. SHIFT ASSSMENT PERFORMED. CALL LIGHT WITHIN REACH, DENIES ANY FURTHER NEEDS AT THIS TIME, WILL CONT TO FOLLOW POC
--- NOTE | 2018-07-23 12:00 | NUR ---
PT SITTING ON SIDE OF BED EATING LUNCH. CALL LIGHT WITHIN REACH. DENIES ANY NEEDS AT THIS TIME. WILL CONT TO FOLLOW POC
--- NOTE | 2018-07-23 14:18 | NUR ---
PIV TO PT RIGHT FA INFILTRATED, PIV REMOVED WITH CATHETER TIP INTACT. 22G PIV INSERTED X2 ATTEMPT TO PT LEFT FA. PT TOLERATED WELL. DENIES ANY FURTHER NEEDS AT THIS TIME, WILL CONT TO FOLLOW POC
--- NOTE | 2018-07-23 18:00 | NUR ---
PT RESTING IN BED, CALL LIGHT WITHIN REACH, DENIES ANY NEEDS AT THIS TIME, WILL CONT TO FOLLOW POC
--- NOTE | 2018-07-23 19:15 | NUR ---
ROUNDS COMPLETED VSS, RT STATES HR WAS LITTLE ELEVATED AND WILL HOLD BREATHING TREAMENT A WHILE. ASSIST PT TO BATHROOM, UN RETURNING PT STATES SHE IS SOB, AND COLD PT ON 02 @ 2L AT THIS TIME. 02SAT 96. WARM BLANKET PROVIDED. PT VOICED THANKS. WILL CPOC. CL IN REACH, BED IN LOW, SR UP X2.
--- NOTE | 2018-07-23 19:46 | NUR ---
PT STATES SHE FEELS ACHING PAIN ACROSS HER LOWER ABDOMEN. ULTRAM 50MG PRN GIVEN AT THIS TIME. EDUCATE PT ON NEED TO USE HER CALL LIGHT WHENEVER SHE NEEDS HELP. WILL CTM. CL WITHIN REACH.
--- NOTE | 2018-07-23 21:29 | NUR ---
PT HR 120'S @ THIS TIME. SHE HAS BEEN TRYING TO GET OUT OF BED MORE OFTEN TO THE BATHROOM AND ANYTIME SHE DOES, HR GET ELEVATED. EDUCTATE THE PT ON THE NEED TO USE HER BED CHRISTY TEMPORARILY UNTIL HER HEART RATE RETURNS TO NORMAL SINUS. RECHECKED BLOOD SUGAR, BECAUSE PT STATES SHE IS HAVING S/S OF LOW BLOOD SUGAR. RECHECKED FSBS NOW 258. WILL CTM.
[2018-07-24 04:12] LABS: HEMATOCRIT 34.9 % (36.0-48.0); HEMOGLOBIN 11.8 g/dL (12-16); MCH 30.5 pg (26.0-34.0); MCHC 33.8 g/dL (31.0-37.0); MCV 90.2 fL (80.0-100.0); MEAN PLATELET VOLUME 9.6 fL (7.4-10.4); PLATELET COUNT 200 10x3/uL (130-400); RBC 3.87 10x6/uL (4.00-5.40); RDW 13.5 % (11.5-14.5); WBC 23.9 10x3/uL (4.8-10.8)
[2018-07-24 04:29] LABS: ALBUMIN 2.4 g/dL (3.4-5.0); BILIRUBIN - TOTAL 0.65 mg/dL (0.2-1.3); CALCIUM 9.5 mg/dL (8.5-10.1); CARBON DIOXIDE 24.7 mmol/L (21.0-32.0); CREATININE - SERUM 1.3 mg/dL (0.6-1.3); MAGNESIUM - SERUM 2.1 mg/dL (1.8-2.4); POTASSIUM - SERUM 4.7 mmol/L (3.5-5.1); PROTEIN - SERUM 6.6 g/dL (6.4-8.2)
[2018-07-24 04:30] VITALS: BP 131/70
[2018-07-24 04:40] LABS: EOSINOPHILS 1 % (0-7); LYMPHOCYTES 10 % (15-50); MONOCYTES 4 % (2-11); NEUTROPHILS 83 % (40-80); PLATELET ESTIMATE NORMAL
--- NOTE | 2018-07-24 07:30 | NUR ---
RESTING IN BED POSITIONED ON BACK WITH EYES CLOSED BUT OPENED WHEN NAME CALLED. ALERT AND ORIENTED X 4 WITH NO COMPLAINTS OR REQUESTS VOICED. DENIES ANY PAIN AT PRESENT TIME. ASSISTED UP TO BATHROOM AND DOES WELL WITH HER WALKER. ASSESSMENT COMPLETED AND WILL CONTINUE POC.
[2018-07-24 07:35] VITALS: BP 136/65
--- NOTE | 2018-07-24 11:02 | NUR ---
Nutrition follow-up: Pt reports appetite is improving Diet: ADA consistent CHO PO intake ~50% of meals Labs reviewed Wt: 278# no BM charted RDN following.
[2018-07-24 11:21] VITALS: BP 125/63
--- NOTE | 2018-07-24 11:37 | NUR ---
I have reviewed this patient and I concur with the Shift Assessment completed by the Licensed Practical Nurse today this shift.
[2018-07-24 15:38] VITALS: BP 119/60
[2018-07-24 20:00] VITALS: BP 139/60
--- NOTE | 2018-07-24 20:06 | NUR ---
PATIENT LAYING IN BED. COMPLAINS OF FEELING OF "STUFFY NOSE". NO OTHER COMPLAINTS AT THIS TIME. NO DISTRESS NOTED.
--- NOTE | 2018-07-24 22:30 | NUR ---
PATIENT LAYING IN BED. NO COMPLAINTS AT THIS TIME. NO DISTRESS NOTED.
--- NOTE | 2018-07-24 23:10 | NUR ---
I have reviewed this patient and I concur with the Shift Assessment completed by the Licensed Practical Nurse today this shift.
[2018-07-25 05:00] LABS: BASOPHILS 0.2 % (0-2); EOSINOPHILS 1.3 % (0-7); HEMATOCRIT 34.8 % (36.0-48.0); IMMATURE GRANULOCYTES 1.2 % (0-5); LYMPHOCYTES 7.8 % (15-50); MCH 30.8 pg (26.0-34.0); MCHC 34.5 g/dL (31.0-37.0); MCV 89.5 fL (80.0-100.0); MEAN PLATELET VOLUME 9.6 fL (7.4-10.4); MONOCYTES 7.9 % (2-11); NEUTROPHILS 81.6 % (40-80); PLATELET COUNT 223 10x3/uL (130-400); RBC 3.89 10x6/uL (4.00-5.40); RDW 13.3 % (11.5-14.5); WBC 19.5 10x3/uL (4.8-10.8)
[2018-07-25 05:15] LABS: ALBUMIN 2.4 g/dL (3.4-5.0); ANION GAP 12.6 mmol/L (8-16); BILIRUBIN - TOTAL 0.58 mg/dL (0.2-1.3); CALCIUM 9.3 mg/dL (8.5-10.1); CARBON DIOXIDE 25.6 mmol/L (21.0-32.0); CREATININE - SERUM 1.1 mg/dL (0.6-1.3); MAGNESIUM - SERUM 1.9 mg/dL (1.8-2.4); POTASSIUM - SERUM 4.2 mmol/L (3.5-5.1); PROTEIN - SERUM 6.8 g/dL (6.4-8.2)
[2018-07-25 05:30] VITALS: BP 150/67
--- NOTE | 2018-07-25 07:14 | NUR ---
PT AWAKE AND ORIENTED. NO COMPLAINTS/CONCERNS AT THIS TIME. CL IN REACH, SRX2.
[2018-07-25 08:52] VITALS: BP 146/62
--- NOTE | 2018-07-25 10:06 | NUR ---
I have reviewed this patient and I concur with the Shift Assessment completed by the Licensed Practical Nurse today this shift.
--- NOTE | 2018-07-25 12:22 | MORECARE ---
CASE MANAGEMENT DISCHARGE SUMMARY PATIENT: NOAH MARTINEZ UNIT: [id number] ADM DATE: 07/21/18 AGE: 78 : 41 SEX: F ROOM/BED: D.2107 AUTHOR: LEONARD BRYAN PHYSICIAN: REFERRING PHYSICIAN: KRYSTLE VELÁZQUEZ MD DATE OF SERVICE: 07/25/18 Discharge Plan Patient Name: NOAH MARTINEZ Facility: [facility]:[place] : 1940 Planned Disposition: Home Anticipated Discharge Date: 07/25/18 Discharge Date: Expected LOS: 4 Initial Reviewer: [email or web address] Initial Review Date: 07/21/2018 Generated: 07/25/18 1:21 pm Patient Name: NOAH MARTINEZ Page [id number] at 1222 All edits/amendments must be made on the electronic document DICTATION DATE: 07/25/18 1221 FLUTE TEACHER: MARVIN 07/25/18 1221 RPT#: [id number] DC DATE: STATUS: ADM IN [facility] [address] [place] [address] END OF REPORT
[2018-07-25 12:29] VITALS: BP 140/63
--- NOTE | 2018-07-25 12:32 | MORECARE ---
CASE MANAGEMENT DISCHARGE SUMMARY PATIENT: NOHA MARTINEZ UNIT: [id number] ADM DATE: 07/21/18 AGE: 78 : 41 SEX: F ROOM/BED: D.3708 AUTHOR: IRVINDOC PHYSICIAN: REFERRING PHYSICIAN: KRYSTLE VELÁZQUEZ MD DATE OF SERVICE: 07/25/18 Discharge Plan Patient Name: NOAH MARTINEZ Facility: [facility]:[place] : 1940 Planned Disposition: Home Anticipated Discharge Date: 07/25/18 Discharge Date: Expected LOS: 4 Initial Reviewer: [email or web address] Initial Review Date: 07/21/2018 Generated: 07/25/18 1:31 pm Comments DCP- Discharge Planning Updated by [email or web address]: Javier Lopez on 07/25/18 11:[address] Patient Name: NOAH MARTINEZ Admission Status: ER Accout number: [id number] Admission Date: 07-21-2018 : 1940 Admission Diagnosis:UNSPECIFIED ABDOMINAL PAIN Attending: KRYSTLE VELÁZQUEZ Current LOS: 4 Anticipated DC Date: 07-25-2018 Planned Disposition: Home Primary Insurance: MEDICARE A & B Discharge Planning Comments: CM MET WITH PT IN ROOM TO DISCUSS DISCHARGE PLANNING AND NEEDS. PT REPORTS LIVING AT HOME INDEPENDENTLY WITH HER SPOUSE. PT HAS WALKER WITH SEAT AND BRAKES WITH NO MEDICAL EQUIPMENT PROVIDER PREFERENCE. PT HAS NO OUTSIDE SERVICES ASSISTING IN THE HOME. CM DISCUSSED AVAILABILITY OF HOME HEALTH, REHAB SERVICES AND MEDICAL EQUIPMENT. PT DENIES DISCHARGE NEEDS AT THIS TIME, SHE WILL THINK ABOUT HOME HEALTH AND THEY MAY HIRE PERSONAL CARE. CM GAVE PT A LISTING OF HOME HEALTH PROVIDERS AND CARD FOR "A PLACE FOR MOM". CM EDUCATED PT ON DIFFERENCES BETWEEN HOME HEALTH AND PERSONAL CARE. PT REPORTS HER SPOUSE WILL PICK HER UP FOR DISCHARGE HOME. PT PLANS TO DISCHARGE HOME WITH SPOUSE, DENIES DISCHARGE NEEDS AT THIS TIME AND IS THINKING ABOUT HOME HEALTH. FAMILY TO TRANSPORT HOME AT DISCHARGE. CM TO FOLLOW AND ASSIST IF NEEDED. Skill Training Program Coordinator: Javier Lopez DCPIA - Discharge Planning Initial Assessment Updated by [email or web address]: Javier Lopez on 07/25/18 12:22 pm * Is the patient Alert and Oriented? Yes * How many steps to enter\\exit or inside your home? NONE * PCP CR. CM * Pharmacy [facility] * Preadmission Environment Home with Family * ADLs Independent * Equipment Rolling Walker * Other Equipment WALKER WITH SEAT AND BRAKES NO MEDICAL EQUIPMENT PROVIDER PREFERENCE * List name and contact numbers for known caregivers / representatives who currently or will assist patient after discharge: THERESA MARTINEZNORBERTO, * Verbal permission to speak to the caregivers and representatives has been obtained from the patient. N/A * Community resources currently utilized None * Please name any agencies selected above. NONE * Additional services required to return to the preadmission environment? No * Can the patient safely return to the preadmission environment? Yes * Has this patient been hospitalized within the prior 30 days at any hospital? No Last DP export: 07/25/18 11:22 a Patient Name: NOAH MARTINEZ Page [id number] at 1232 All edits/amendments must be made on the electronic document DICTATION DATE: 07/25/18 1231 DIRECT CARE PROFESSIONAL: MARVIN 07/25/18 1231 RPT#: [id number] DC DATE: STATUS: ADM IN [facility] [address] [place] [address] END OF REPORT
--- NOTE | 2018-07-25 17:54 | NUR ---
PT LYING IN BED ALERT AND EATING SUPPER. NO COMPLAINTS/CONCERNS VOICED AT THIS TIME. CL IN REACH, SRX2. PT HAS BEEN GETTING UP AD JULISSA. USES CL LIBERALLY TO HAVE US WATCH HER DO ADLS, PT HAS PREFORMED WELL UNASSISTED.
[2018-07-25 18:00] VITALS: BP 155/74
[2018-07-25 20:00] VITALS: BP 154/58
--- NOTE | 2018-07-25 20:21 | NUR ---
RECIEVED UP IN BED WITH EYES OPEN. ALERT AND ORIENTED. UP AD JULISSA TO B/R. O2@ 2 LITERS PER N/C. IV TO LEFT FA SL.. DENIES ANY NEEDS AT THIS TIME.
[2018-07-26 00:30] VITALS: BP 168/82
--- NOTE | 2018-07-26 03:10 | NUR ---
PTN HAS BEEN BELT LOOP MACHINE OPERATOR LIGHT EVERY HOUR THIS SHIFT IF NOT 2-3 TIMES AN HOUR. ASKING FOR A KLEENEX THAT SHE CAN EASILY REACH. ANYTIME ANYONE PASSES HER DOOR SHE PUTS HER CALL LIGHT ON. SPOUSE STATES THE ONLY THING HE HELPS HER WITH AT HOME IS GETTING INTO A CHAIR. EVERYTHING ELSE SHE DOES FOR HERSELF. EDUCATED PT THAT AIDS HAS MORE PEOPLE TO CARE FOR AND THAT IT MAY TAKE A WHILE TO GET TO HER. VOICED UNDERSTANDING.
[2018-07-26 05:56] LABS: BASOPHILS 0.3 % (0-2); EOSINOPHILS 1.1 % (0-7); HEMATOCRIT 36.2 % (36.0-48.0); HEMOGLOBIN 12.2 g/dL (12-16); IMMATURE GRANULOCYTES 3.8 % (0-5); LYMPHOCYTES 8.8 % (15-50); MCH 30.1 pg (26.0-34.0); MCHC 33.7 g/dL (31.0-37.0); MCV 89.4 fL (80.0-100.0); MEAN PLATELET VOLUME 9.5 fL (7.4-10.4); PLATELET COUNT 235 10x3/uL (130-400); RBC 4.05 10x6/uL (4.00-5.40); RDW 13.1 % (11.5-14.5); WBC 14.7 10x3/uL (4.8-10.8)
[2018-07-26 06:06] LABS: ALBUMIN 2.3 g/dL (3.4-5.0); ANION GAP 11.8 mmol/L (8-16); BILIRUBIN - TOTAL 0.49 mg/dL (0.2-1.3); CALCIUM 9.2 mg/dL (8.5-10.1); CARBON DIOXIDE 27.4 mmol/L (21.0-32.0); MAGNESIUM - SERUM 1.8 mg/dL (1.8-2.4); POTASSIUM - SERUM 4.2 mmol/L (3.5-5.1); PROTEIN - SERUM 6.7 g/dL (6.4-8.2)
--- NOTE | 2018-07-26 07:00 | NUR ---
RECEIVED REPORT. ASSUMED CARE OF PATIENT. CALL LIGHT WITHIN REACH. RESP EVEN AND UNLABORED. PERSONAL ROLLING WALKER AT BEDSIDE. RESP EVEN AND UNLABORED. AWAKE AND ALERT. NO DISTRESS. OIL SPRAYING MACHINE OPERATOR REPORTS PATIENT HAS BEEN AWAKE ALL NIGHT ON THE CALL LIGHT, REFUSING TO PARTICIPATE IN CARES AND THAT PATIENT IS CAPABLE OF PARTICIPATING IN CARES BUT IS REFUSING.
--- NOTE | 2018-07-26 07:31 | NUR ---
PATIENT COMPLAINS THAT SHE DID NOT RECEIVED HER ARMOUR THYROID. THYROID MEDICATION DOCUMENTED SCANNED AT 0601 THIS AM BY PREVIOUS SHIFT NURSE.
[2018-07-26 09:33] VITALS: BP 129/56
--- NOTE | 2018-07-26 10:25 | NUR ---
22 GAUGE IV PLACED TO RIGHT ANTERIOR WRIST X 1 STICK. GOOD BLOOD RETURN, EASY FLUSH. TAPED, DATED, SECURED. PATIENT TOLERATED IV PLACEMENT WELL. 22 GAUGE IV REMOVED FROM LEFT POSTERIOR WRIST. IV SITE LEAKING. NO BLEEDING FROM SITE. 2X2 GAUZE APPLIED AND SECURED WITH TAPE. CATHETER TIP INTACT. NO DISTRESS.
--- NOTE | 2018-07-26 11:56 | NUR ---
FSBS 117. NO INSULIN PER SLIDING SCALE.
[2018-07-26 13:00] VITALS: BP 149/65
--- NOTE | 2018-07-26 13:38 | NUR ---
PATIENT OOB TO RESTROOM. USES PERSONAL ROLLING WALKER. IV IS SL. RESP EVEN AND UNLABORED. NO DISTRESS.
[2018-07-26 15:30] VITALS: BP 150/64
--- NOTE | 2018-07-26 16:56 | NUR ---
FSBS 90. NO INSULIN PER SLIDING SCALE. SITTING TO CHAIR AT BEDSIDE CONSUMING PM MEAL. NO DISTRESS.
--- NOTE | 2018-07-26 19:37 | NUR ---
EVENING ROUNDS COMPLETED. REPORT RECEIVED. PT SITTING UP ON SIDE OF BED WITH EYES OPEN, RR EVEN AND UNLABORED. BED IN LOW POSITION. NO S/S OF DISTRESS NOTED. INTRODUCED SELF TO PT. PT DENIES FURTHER NEEDS AT THIS TIME. 90 NORMAL SINUS ON TELEMETRY. CALL LIGHT IN REACH. WILL CTM.
[2018-07-27 00:30] VITALS: BP 172/64
--- NOTE | 2018-07-27 03:36 | NUR ---
I have reviewed this patient and I concur with the Shift Assessment completed by the Licensed Practical Nurse today this shift.
[2018-07-27 05:14] LABS: HEMATOCRIT 35.1 % (36.0-48.0); MCH 30.5 pg (26.0-34.0); MCHC 34.2 g/dL (31.0-37.0); MCV 89.1 fL (80.0-100.0); MEAN PLATELET VOLUME 10.3 fL (7.4-10.4); PLATELET COUNT 247 10x3/uL (130-400); RBC 3.94 10x6/uL (4.00-5.40); RDW 13.1 % (11.5-14.5); WBC 13.1 10x3/uL (4.8-10.8)
[2018-07-27 05:17] LABS: EOSINOPHILS 2 % (0-7); LYMPHOCYTES 15 % (15-50); MONOCYTES 9 % (2-11); NEUTROPHILS 70 % (40-80); PLATELET ESTIMATE NORMAL
[2018-07-27 05:30] VITALS: BP 167/60
[2018-07-27 05:37] LABS: ALBUMIN 2.4 g/dL (3.4-5.0); ANION GAP 12.6 mmol/L (8-16); BILIRUBIN - TOTAL 0.63 mg/dL (0.2-1.3); CALCIUM 9.2 mg/dL (8.5-10.1); CARBON DIOXIDE 28.4 mmol/L (21.0-32.0); PROTEIN - SERUM 6.8 g/dL (6.4-8.2)
--- NOTE | 2018-07-27 07:18 | NUR ---
PT AWAKE AND ORIENTED SITTING ON SIDE OF BED, PUTTING HER CLOTHES ON. NO COMPLAINTS/CONCERNS VOICED AT THIS TIME. CL IN REACH, SRX2.
[2018-07-27 08:14] VITALS: BP 144/60
--- NOTE | 2018-07-27 11:20 | NUR ---
I have reviewed this patient and I concur with the Shift Assessment completed by the Licensed Practical Nurse today this shift.
--- NOTE | 2018-07-27 11:45 | NUR ---
PT SHOWS ATTENTION SEEKING BEHAVIOR. CALLED ME IN AND TOLD ME TO STOP HER ANTIBIOTIC BECAUSE IT WAS TOO UNCOMFORTABLE. THEN REQUESTED A PAIN PILL. THEN WANTED TO USE THE RESTROOM, AND THOUGH SHE NEEDS NO ASSISTANCE SHE WANTS SOMEONE TO STANDBY AND WATCH. THEN PT REQUESTED I MOVE HER PILLOW ABOUT AN INCH BACK AND RAISE THE HEAD OF HER BED. ALL OF THESE ACTIONS THE PT WAS PERFECTLY CABABLE OF REACHING AN DOING WITH EASE. THE ENTIRE TIME I WAS IN THERE THE PT WAS LOUDLY MOANING AND WINCING WITH EACH SMALL BREATH OR MOVEMENT. PT REPEATEDLY LOOKED AT ME TO DO VERY SIMPLE THINGS FOR HER. PT TOOK AN EXAGERATEDLY LONG TIME TO SIT HERSELF ON THE SIDE OF THE BED AND GO TO THE BATHROOM. DURING THE ACTUAL MOVEMENTS PT HAS NO NOTABLE ISSUE/DIFFICULTY. CL IN REACH, SRX2.
[2018-07-27 13:06] VITALS: BP 147/54
[2018-07-27] MEDS ORDERED: LEVOFLOXACIN500 MG PO (15:08)
--- NOTE | 2018-07-27 18:42 | NUR ---
PT SITTING ON SIDE OF BED, WAITING ON . PT STATES THAT HER TOLD HER HE WOULDN'T BE ABLE TO LEAVE UNTIL 1900 TO PICK HER UP, [place]ES [place] 25 MIL[place] AWAY (30 MINUTES). PT IS AWARE, AND I REMINDED HER, THAT IF SHE STAYS UNTIL MIDNIGHT SHE WOULD BE CHARGED FOR ANOTHER DAY. CL IN REACH. SHE WILL LET US KNOW WHEN HER IS ON HIS WAY
--- NOTE | 2018-07-27 20:09 | NUR ---
PT SHOWED UP TO BLACKSMITH HAMMER OPERATOR. WHEELED PT OUT TO PRIVATE CAR. IV DC'D DISCHARGE PAPERWORK GIVEN.
--- NOTE | 2018-07-28 09:01 | MORECARE ---
CASE MANAGEMENT DISCHARGE SUMMARY PATIENT: NOAH MARTINEZ UNIT: [id number] ADM DATE: 07/21/18 AGE: 78 : 41 SEX: F ROOM/BED: D.9672 AUTHOR: IRVINDOC PHYSICIAN: REFERRING PHYSICIAN: KRYSTLE VELÁZQUEZ MD DATE OF SERVICE: 07/28/18 Discharge Plan Patient Name: NOAH MARTINEZ Facility: [facility]:[place] : 1940 Planned Disposition: Home Anticipated Discharge Date: 07/27/18 Discharge Date: 07/27/2018 Expected LOS: 6 Initial Reviewer: [email or web address] Initial Review Date: 07/21/2018 Generated: 07/28/18 10:01 am Comments DCP- Discharge Planning Updated by [email or web address]: Javier Lopez on 07/25/18 11:[address] Patient Name: NOAH MARTINEZ Admission Status: ER Accout number: [id number] Admission Date: 07-21-2018 : 1940 Admission Diagnosis:UNSPECIFIED ABDOMINAL PAIN Attending: KRYSTLE VELÁZQUEZ Current LOS: 4 Anticipated DC Date: 07-25-2018 Planned Disposition: Home Primary Insurance: MEDICARE A & B Discharge Planning Comments: CM MET WITH PT IN ROOM TO DISCUSS DISCHARGE PLANNING AND NEEDS. PT REPORTS LIVING AT HOME INDEPENDENTLY WITH HER SPOUSE. PT HAS WALKER WITH SEAT AND BRAKES WITH NO MEDICAL EQUIPMENT PROVIDER PREFERENCE. PT HAS NO OUTSIDE SERVICES ASSISTING IN THE HOME. CM DISCUSSED AVAILABILITY OF HOME HEALTH, REHAB SERVICES AND MEDICAL EQUIPMENT. PT DENIES DISCHARGE NEEDS AT THIS TIME, SHE WILL THINK ABOUT HOME HEALTH AND THEY MAY HIRE PERSONAL CARE. CM GAVE PT A LISTING OF HOME HEALTH PROVIDERS AND CARD FOR "A PLACE FOR MOM". CM EDUCATED PT ON DIFFERENCES BETWEEN HOME HEALTH AND PERSONAL CARE. PT REPORTS HER SPOUSE WILL PICK HER UP FOR DISCHARGE HOME. PT PLANS TO DISCHARGE HOME WITH SPOUSE, DENIES DISCHARGE NEEDS AT THIS TIME AND IS THINKING ABOUT HOME HEALTH. FAMILY TO TRANSPORT HOME AT DISCHARGE. CM TO FOLLOW AND ASSIST IF NEEDED. Deicer Inspector Electric: Javier Lopez DCPIA - Discharge Planning Initial Assessment Updated by [email or web address]: Javier Lopez on 07/25/18 12:22 pm * Is the patient Alert and Oriented? Yes * How many steps to enter\\exit or inside your home? NONE * PCP CR. CANNADAY * Pharmacy [facility] [place] OR [facility] [email or web address] * Preadmission Environment Home with Family * ADLs Independent * Equipment Rolling Walker * Other Equipment WALKER WITH SEAT AND BRAKES NO MEDICAL EQUIPMENT PROVIDER PREFERENCE * List name and contact numbers for known caregivers / representatives who currently or will assist patient after discharge: THERESA MARTINEZNORBERTO, * Verbal permission to speak to the caregivers and representatives has been obtained from the patient. N/A * Community resources currently utilized None * Please name any agencies selected above. NONE * Additional services required to return to the preadmission environment? No * Can the patient safely return to the preadmission environment? Yes * Has this patient been hospitalized within the prior 30 days at any hospital? No Last DP export: 07/25/18 11:31 a Patient Name: NOAH MARTINEZ Page [id number] at 0901 All edits/amendments must be made on the electronic document DICTATION DATE: 07/28/18899 PROGRAM MANAGEMENT MANAGER: MARVIN 07/28/18899 RPT#: [id number] DC DATE:07/27/18 STATUS: DIS IN [facility] [address] [place] [address] END OF REPORT
== END 2018-07-27 21:16 | disposition home or self-care (01) | DRG 871 ==
LOC: D.ER 08:05 → D.EDHOLD 10:43 → D.M2 10:43
PROVIDERS: Emergency Medicine; Family Medicine; ADMIT Family Medicine; ATTEND Family Medicine
DX: A41.9 Sepsis, unspecified organism (principal); J18.9 Pneumonia, unspecified organism; G93.41 Metabolic encephalopathy; N17.9 Acute kidney failure, unspecified; N39.0 Urinary tract infection, site not specified; I10 Essential (primary) hypertension; E03.9 Hypothyroidism, unspecified; E11.65 Type 2 diabetes mellitus with hyperglycemia; E11.51 Type 2 diabetes mellitus with diabetic peripheral angiopathy without gangrene

== ENCOUNTER → 2018-08-21 15:44 | Outpatient (CLI) | payer MEDICARE, OTHER ==
[2018-07-22 10:38] VITALS: BMI 39.8
[~2018-08-21 15:44] MED LIST changes: +LEVOFLOXACIN500 MG PO
== END | disposition home or self-care (01) ==
LOC: D.RAD 15:43
PROVIDERS: ATTEND Family Medicine
DX: J18.9 Pneumonia, unspecified organism (principal)